=== PATIENT | female | born 1960 | race Caucasian/White ===

== ENCOUNTER → 2016-12-20 | Outpatient (CLI) | payer MEDICAID ==
[2016-12-20 08:19] LABS: Basophils # (A) 0.1 k/uL (0-0.2); Basophils % (A) 1 %; CH 30.5; CHCM 34.7; Eosinophils # (A) 0.1 k/uL (0-0.7); Eosinophils % (A) 2 %; HCT 42.1 % (34.0-46.0); HDW 2.71; Luc # (Auto) 0.13; Luc % (Auto) 3; Lymphocytes # (A) 2.1 k/uL (1.0-4.8); Lymphocytes % (A) 40 %; MCH 29.5 pg (25.0-35.0); MCHC 33.4 g/dL (31.0-37.0); MCV 88.3 fL (80.0-100.0); Mean Platelet Volume 6.6; Monocytes # (A) 0.3 k/uL (0-1.0); Monocytes % (A) 5 %; Neutrophils # (A) 2.7 k/uL (1.3-7.7); Neutrophils % (A) 50 %; RBC 4.77 m/uL (3.80-5.40); RDW 12.2 % (11.5-15.5); WBC 5.4 k/uL (3.8-10.6)
[2016-12-20 08:39] LABS: ALT 29 U/L (9-52); AST 27 U/L (14-36); Alkaline Phosphatase 48 U/L (38-126); Anion Gap 12 mmol/L; Blood Urea Nitrogen 17 mg/dL (7-17); Carbon Dioxide 27 mmol/L (22-30); Chloride 106 mmol/L (98-107); Cholesterol 200 mg/dL (<200); Glucose 102 mg/dL (74-99); HDL Cholesterol 68 mg/dL (40-60); Non-African American GFR(MDRD) >60 (>60 ml/min/1.73 sqM); Potassium 4.8 mmol/L (3.5-5.1); Sodium 145 mmol/L (137-145); Total Protein 7.7 g/dL (6.3-8.2); Triglycerides 127 mg/dL (<150)
[2016-12-20 10:22] LABS: Hemoglobin A1C 5.5 % (4.2-6.1)
== END ==
LOC: LABWHC1 07:24
PROVIDERS: ATTEND Internal Medicine Geriatric Medicine
DX: E78.5 Hyperlipidemia, unspecified (principal); I10 Essential (primary) hypertension; R79.9 Abnormal finding of blood chemistry, unspecified
CPT/HCPCS: 36415; 80053; 80061; 82306; 83036; 84439; 84443; 85025

== ENCOUNTER → 2018-04-07 | Outpatient (CLI) | payer MEDICAID ==
[2018-04-07 07:48] LABS: Basophils # (A) 0.1 k/uL (0-0.2); Basophils % (A) 1 %; Eosinophils # (A) 0.1 k/uL (0-0.7); Eosinophils % (A) 2 %; HCT 40.8 % (34.0-46.0); HGB 13.9 gm/dL (11.4-16.0); Lymphocytes # (A) 2.3 k/uL (1.0-4.8); Lymphocytes % (A) 41 %; MCH 29.7 pg (25.0-35.0); MCHC 34.1 g/dL (31.0-37.0); MCV 87.2 fL (80.0-100.0); Mean Platelet Volume 6.5; Monocytes # (A) 0.3 k/uL (0-1.0); Monocytes % (A) 5 %; Neutrophils # (A) 2.6 k/uL (1.3-7.7); Neutrophils % (A) 48 %; Platelet Count 318 k/uL (150-450); RBC 4.69 m/uL (3.80-5.40); RDW 12.8 % (11.5-15.5); WBC 5.5 k/uL (3.8-10.6)
[2018-04-07 08:01] LABS: ALT 31 U/L (9-52); AST 28 U/L (14-36); Albumin 4.4 g/dL (3.5-5.0); Alkaline Phosphatase 44 U/L (38-126); Anion Gap 11 mmol/L; Blood Urea Nitrogen 17 mg/dL (7-17); Calcium 9.9 mg/dL (8.4-10.2); Carbon Dioxide 25 mmol/L (22-30); Chloride 107 mmol/L (98-107); Cholesterol 172 mg/dL (<200); Glucose 103 mg/dL (74-99); HDL Cholesterol 69 mg/dL (40-60); LDL Cholesterol,Calculated 79 mg/dL (0-99); Potassium 4.3 mmol/L (3.5-5.1); Sodium 143 mmol/L (137-145); Total Bilirubin 0.7 mg/dL (0.2-1.3); Total Protein 7.1 g/dL (6.3-8.2); Triglycerides 120 mg/dL (<150)
[2018-04-07 08:12] LABS: T4, Free (Free Thyroxine) 1.14 ng/dL (0.78-2.19)
[2018-04-07 13:49] LABS: Hemoglobin A1C 5.5 % (4.0-6.0)
== END | disposition home or self-care (01) ==
LOC: LABWHC1 07:31
PROVIDERS: ATTEND Internal Medicine Geriatric Medicine
DX: Z00.00 Encounter for general adult medical examination without abnormal findings (principal); E78.5 Hyperlipidemia, unspecified; F32.89 Other specified depressive episodes; I10 Essential (primary) hypertension; R79.9 Abnormal finding of blood chemistry, unspecified
CPT/HCPCS: 36415; 80053; 80061; 83036; 84439; 84443; 85025

== ENCOUNTER → 2018-05-11 | Outpatient (CLI) | payer MEDICAID ==
--- NOTE | 2018-05-11 11:18 | BD ---
EXAMINATION TYPE: Axial Bone Density DATE OF EXAM: 05/11/2018 COMPARISON: 01.30.2013 CLINICAL HISTORY: 57 YR OLD FEMALE....ICD-10 CODE: Z13.820 ENCOUNTER FOR SCREENING Height: 61.8 Weight: 156 FRAX RISK QUESTIONS: NONE TO NOTE FROM LIST RISK FACTORS HISTORY OF: Surgery to Spine FOR DISC ONLY When: YR 1999 Diet low in dairy products/other sources of calcium: NO Postmenopausal woman: YES AT AGE 45 YRS OLD MEDICATIONS: Additional Medications: CELEXA, TUMS, STATINS FOR CHOLESTEROL, VIT D Additional History: NONE TO NOTE EXAM MEASUREMENTS: Bone mineral densitometry was performed using the Touch[employer] System. Bone mineral density as measured about the Lumbar spine is: ----- L1-L4(G/cm2): 1.113 T Score Values are as follows: ----- L1: -0.1 ----- L2: -0.9 ----- L3: -0.5 ----- L4: -0.7 ----- L1-L4: -0.6 Bone mineral density has: Decreased -3.5% since study of: 01.30.2013 Bone mineral density about the R hip (g/cm2): 0.939 Bone mineral density about the L hip (g/cm2): 0.929 T Score values are as follows: -----R Neck: -1.2 -----L Neck: -1.3 -----R Total: -0.5 -----L Total: -0.6 Bone mineral density has: Decreased -7.9% since study of: 01.30.2013 FRAX%s: THERE IS A 4.5% CHANCE OF A MAJOR OSTEOPOROTIC FX AND A 0.6% FOR HIP FX....PROBABILITY OF FX IN 10 YRS TIME IMPRESSION: Osteopenia (T Score between -2.5 and -1). There is slightly increased risk of fracture and the patient may be considered for treatment. Re-Screen 2-5 years. NOTE: T-SCORE=SD OF THE YOUNG ADULT MEAN.
--- NOTE | 2018-05-12 10:59 | MM ---
Reason for exam: screening (asymptomatic). Last mammogram was performed 1 year and 7 months ago. History: Patient is postmenopausal. Physical Findings: A clinical breast exam by your physician is recommended on an annual basis and results should be correlated with mammographic findings. MG Screening Mammo w CAD Bilateral CC and MLO view(s) were taken. Prior study comparison: October 19, 2016, bilateral MG screening mammo w CAD. October 16, 2015, bilateral MG screening mammo w CAD. The breast tissue is heterogeneously dense. This may lower the sensitivity of mammography. Benign appearing bilateral calcifications. No suspicious abnormality. No significant changes when compared with prior studies. ASSESSMENT: Benign, BI-RAD 2 RECOMMENDATION: Routine screening mammogram of both breasts in 1 year.
== END | disposition home or self-care (01) ==
LOC: RADMAMWWP 07:38
PROVIDERS: ATTEND Obstetrics & Gynecology
DX: Z12.31 Encounter for screening mammogram for malignant neoplasm of breast (principal); M85.80 Other specified disorders of bone density and structure, unspecified site
CPT/HCPCS: 77067; 77080

== ENCOUNTER → 2018-12-07 | Outpatient (CLI) | payer MEDICAID ==
--- NOTE | 2018-12-08 07:10 | XR ---
EXAMINATION TYPE: XR chest 2V DATE OF EXAM: 12/07/2018 COMPARISON: 02/16/2016 HISTORY: Cough for one month TECHNIQUE: Frontal and lateral views of the chest are obtained. FINDINGS: There is no focal air space opacity, pleural effusion, or pneumothorax seen. The cardiac silhouette size is within normal limits. The osseous structures are intact. Minimal degenerative ch anges of the thoracic spine are seen. IMPRESSION: No acute cardiopulmonary process.
== END | disposition home or self-care (01) ==
LOC: RADXRMAIN 16:43
PROVIDERS: ATTEND Internal Medicine Geriatric Medicine
DX: J15.6 Pneumonia due to other Gram-negative bacteria (principal)
CPT/HCPCS: 71046

== ENCOUNTER → 2020-01-08 | Outpatient (CLI) | payer MEDICAID ==
[2020-01-08 08:46] LABS: Basophils % (A) 1 %; Eosinophils # (A) 0.1 k/uL (0-0.7); Eosinophils % (A) 2 %; HCT 40.6 % (34.0-46.0); HGB 13.8 gm/dL (11.4-16.0); Lymphocytes # (A) 1.7 k/uL (1.0-4.8); Lymphocytes % (A) 32 %; MCHC 33.9 g/dL (31.0-37.0); MCV 85.6 fL (80.0-100.0); Mean Platelet Volume 7.3; Monocytes # (A) 0.3 k/uL (0-1.0); Monocytes % (A) 6 %; Neutrophils # (A) 3.1 k/uL (1.3-7.7); Neutrophils % (A) 57 %; Platelet Count 317 k/uL (150-450); RBC 4.75 m/uL (3.80-5.40); RDW 12.1 % (11.5-15.5); WBC 5.4 k/uL (3.8-10.6)
[2020-01-08 15:59] LABS: Albumin 4.8 g/dL (3.80-4.90); Albumin/Globulin Ratio 2.18 (1.60-3.17); Anion Gap 10.4 mmol/L (4.00-12.00); BUN/Creat Ratio 25.56 Ratio (12.00-20.00); Calcium 9.7 mg/dL (8.7-10.3); Carbon Dioxide 26.6 mmol/L (21.6-31.8); Chol/HDL Ratio 3.23; Globulin 2.2 g/dL (1.6-3.3); LDL Cholesterol,Calculated 110.8 mg/dL (0.0-131.0); Potassium 4.3 mmol/L (3.5-5.5); Total Bilirubin 0.5 mg/dL (0.3-1.2); VLDL Calculation 23.2 mg/dL (5.00-40.00)
[2020-01-08 18:26] LABS: Hemoglobin A1C 5.8 % (4.0-6.0)
== END | disposition home or self-care (01) ==
LOC: LABWHC1 08:03
PROVIDERS: ATTEND Nurse Practitioner Family
DX: I10 Essential (primary) hypertension (principal); R07.9 Chest pain, unspecified; E78.5 Hyperlipidemia, unspecified
CPT/HCPCS: 36415; 80053; 80061; 83036; 84443; 85025

== ENCOUNTER → 2020-06-27 | Outpatient (CLI) | payer MEDICAID ==
--- NOTE | 2020-07-01 13:49 | MM ---
Reason for exam: screening (asymptomatic). Last mammogram was performed 2 years and 2 months ago. History: Patient is postmenopausal. Physical Findings: A clinical breast exam by your physician is recommended on an annual basis and results should be correlated with mammographic findings. MG 3D Screening Mammo W/Cad Bilateral CC and MLO view(s) were taken. Prior study comparison: May 11, 2018, bilateral MG screening mammo w CAD. October 19, 2016, bilateral MG screening mammo w CAD. There are scattered fibroglandular densities. No significant changes when compared with prior studies. ASSESSMENT: Benign, BI-RAD 2 RECOMMENDATION: Routine screening mammogram of both breasts in 1 year.
== END | disposition home or self-care (01) ==
LOC: RADMAMWWP 09:54
PROVIDERS: ATTEND Internal Medicine Geriatric Medicine
DX: Z12.31 Encounter for screening mammogram for malignant neoplasm of breast (principal)
CPT/HCPCS: 77063; 77067

== ENCOUNTER 2020-07-30 08:26 | Day surgery (SDC) | payer MEDICAID ==
[2020-07-29 08:25] VITALS: BMI 28.9
[~2020-07-30 08:26] MED LIST: LIDOCAINE 1% (10MG/ML) FOR IV START INTRADERMA PRN
[2020-07-30 08:50] VITALS: TEMP 97.9
[2020-07-30] MEDS: LACTATED RINGERS 1,000 ML IV SCH ×2 (09:00→09:29)
[2020-07-30] MEDS ORDERED: PROPOFOL 10 MG/ML 20 ML VIAL IV ONE (09:31)
[2020-07-30] MEDS ORDERED: LIDOCAINE 1% INJ 10MG/ML (20 ML MDV) ONE (09:31)
--- NOTE | 2020-07-30 09:52 | P.PCN ---
Date of Procedure: 07/30/20 Procedure(s) Performed: BRIEF HISTORY: Patient is a 59-year-old pleasant female scheduled for an elective colonoscopy as a part of screening for colorectal neoplasia. Her last colonoscopy was 10 years ago. PROCEDURE PERFORMED: Colonoscopy. PREOPERATIVE DIAGNOSIS: Screening for colon cancer. IV sedation per Anesthesia. PROCEDURE: After informed consent was obtained, the patient, was brought into the endoscopy unit. IV sedation was administered by Anesthesia under continuous monitoring. Digital rectal examination was normal. Initially the Olympus CF-160 flexible video colonoscope was then inserted in the rectum, gradually advanced into the cecum without any difficulty. Careful examination was performed as the scope was gradually being withdrawn. Ileocecal valve and the appendiceal orifice were visualized and appeared normal. Prep was excellent. Mucosa of the cecum, ascending colon, transverse colon, descending colon, sigmoid colon, and rectum appeared normal. Scattered sigmoid diverticulosis seen. Retroflexion was performed in the rectum and no lesions were seen. The patient tolerated the procedure well. IMPRESSION: Normal-appearing colon from rectum to cecum with no evidence of colorectal neoplasia . Scattered sigmoid diverticulosis. RECOMMENDATIONS: Findings of this examination were discussed with the patient as well as a family. She was advised to have a repeat screening colonoscopy in 10 years.
[2020-07-30 10:11] VITALS: BP 124/74; PULSE 82; RESP 16
== END 2020-07-30 10:38 | disposition home or self-care (01) ==
LOC: ORWHC2ENDO 08:26
PROVIDERS: ATTEND Internal Medicine Gastroenterology
DX: Z12.11 Encounter for screening for malignant neoplasm of colon (principal); K57.30 Diverticulosis of large intestine without perforation or abscess without bleeding; Z79.899 Other long term (current) drug therapy; E78.5 Hyperlipidemia, unspecified; K21.9 Gastro-esophageal reflux disease without esophagitis
CPT/HCPCS: J2001; J2704; G0121

== ENCOUNTER → 2021-01-12 | Outpatient (CLI) | payer MEDICAID ==
[2021-01-12 10:36] LABS: Basophils # (A) 0.06 X 10*3/uL (0.00-0.10); Basophils % (A) 1.1 %; Eosinophils # (A) 0.09 X 10*3/uL (0.04-0.35); Eosinophils % (A) 1.7 %; HCT 37.9 % (37.2-46.3); HGB 12.8 g/dL (12.0-15.0); Lymphocytes # (A) 2.21 X 10*3/uL (0.90-5.00); MCH 29.2 pg (27.0-32.0); MCHC 33.8 g/dL (32.0-37.0); MCV 86.5 fL (80.0-97.0); Mean Platelet Volume 10.5 fL (9.5-12.2); Monocytes # (A) 0.37 X 10*3/uL (0.20-1.00); Neutrophils # (A) 2.52 X 10*3/uL (1.80-7.70); Platelet Count 294 X 10*3/uL (140-440); RBC 4.38 X 10*6/uL (4.10-5.20); RDW 11.9 % (11.5-14.5); WBC 5.26 X 10*3/uL (4.50-10.00)
[2021-01-12 11:19] LABS: African American GFR (CKD) 79.4 (60.0-200.0); Albumin 4.7 g/dL (3.80-4.90); Albumin/Globulin Ratio 2.35 (1.60-3.17); BUN/Creat Ratio 27.78 Ratio (12.00-20.00); Calcium 9.9 mg/dL (8.7-10.3); Chol/HDL Ratio 3.08; Non-African American GFR(CKD) 68.5 (60.0-200.0); Potassium 4.4 mmol/L (3.5-5.5); Total Bilirubin 0.7 mg/dL (0.2-1.2); Total Protein 6.7 g/dL (6.2-8.2)
[2021-01-12 14:09] LABS: Hemoglobin A1C 5.4 % (4.0-6.0)
== END | disposition home or self-care (01) ==
LOC: LABWHC1 07:22
PROVIDERS: ATTEND Nurse Practitioner Family
DX: I10 Essential (primary) hypertension (principal); R73.9 Hyperglycemia, unspecified; E78.2 Mixed hyperlipidemia
CPT/HCPCS: 36415; 80053; 80061; 83036; 84443; 85025

== ENCOUNTER → 2021-06-30 | Outpatient (CLI) | payer MEDICAID ==
--- NOTE | 2021-07-01 07:31 | XR ---
EXAMINATION TYPE: XR humerus LT DATE OF EXAM: 06/30/2021 CLINICAL HISTORY: pain TECHNIQUE: Frontal and lateral images of the left humerus are obtained. COMPARISON: None. FINDINGS: There is no acute fracture/dislocation evident. The joint spaces appear within normal limi ts. The overlying soft tissue appears unremarkable. IMPRESSION: There is no acute fracture or dislocation. ICD 10 NO FRACTURE, INITIAL EVALUATION
--- NOTE | 2021-07-01 07:31 | XR ---
EXAMINATION TYPE: XR lumbar spine 2 or 3V DATE OF EXAM: 06/30/2021 CLINICAL HISTORY: pain TECHNIQUE: Three views of the lumbar spine are submitted. COMPARISON: None. FINDINGS: There are 5 lumbar type vertebral bodies identified. The lumbar spine shows satisfactory alignment w ithout evidence of acute fracture or dislocation. Vertebral body heights are within normal limits. Moderate multilevel degenerative disc disease. The overlying soft tissue appears unremarkable. IMPRESSION: No acute fracture or dislocation is seen in the lumbar spine. ICD 10 NO FRACTURE, INITIAL EVALUATION
== END | disposition home or self-care (01) ==
LOC: RADXRMAIN 16:43
PROVIDERS: ATTEND Internal Medicine Geriatric Medicine
DX: M79.622 Pain in left upper arm (principal); M51.36 Other intervertebral disc degeneration, lumbar region
CPT/HCPCS: 72100

== ENCOUNTER → 2021-07-16 | Outpatient (CLI) | payer MEDICAID ==
[2021-07-16 11:06] LABS: Basophils # (A) 0.04 X 10*3/uL (0.00-0.10); Basophils % (A) 0.8 %; Eosinophils % (A) 2.1 %; HCT 39.8 % (37.2-46.3); HGB 13.7 g/dL (12.0-15.0); Lymphocytes # (A) 1.99 X 10*3/uL (0.90-5.00); Lymphocytes % (A) 41.8 %; MCH 30.2 pg (27.0-32.0); MCHC 34.4 g/dL (32.0-37.0); MCV 87.7 fL (80.0-97.0); Mean Platelet Volume 9.7 fL (9.5-12.2); Monocytes # (A) 0.54 X 10*3/uL (0.20-1.00); Monocytes % (A) 11.3 %; Neutrophils # (A) 2.07 X 10*3/uL (1.80-7.70); Neutrophils % (A) 43.6 %; Platelet Count 285 X 10*3/uL (140-440); RBC 4.54 X 10*6/uL (4.10-5.20); WBC 4.76 X 10*3/uL (4.50-10.00)
[2021-07-16 15:40] LABS: Hemoglobin A1C 5.7 % (4.0-6.0)
[2021-07-16 22:13] LABS: African American GFR (CKD) 91.6 (60.0-200.0); Albumin 4.8 g/dL (3.80-4.90); Albumin/Globulin Ratio 2.18 (1.60-3.17); Anion Gap 11.5 mmol/L (4.00-12.00); BUN/Creat Ratio 21.25 Ratio (12.00-20.00); Calcium 9.2 mg/dL (8.7-10.3); Carbon Dioxide 23.5 mmol/L (21.6-31.8); Chol/HDL Ratio 3.18; Globulin 2.2 g/dL (1.6-3.3); LDL Cholesterol,Calculated 100.8 mg/dL (0.0-131.0); Potassium 4.2 mmol/L (3.5-5.5); Total Bilirubin 0.7 mg/dL (0.3-1.2); VLDL Calculation 30.2 mg/dL (5.00-40.00)
== END | disposition home or self-care (01) ==
LOC: LABWHC1 07:46
PROVIDERS: ATTEND Internal Medicine Geriatric Medicine
DX: E78.5 Hyperlipidemia, unspecified (principal); R42 Dizziness and giddiness; R73.9 Hyperglycemia, unspecified
CPT/HCPCS: 36415; 80053; 80061; 83036; 84443; 85025

== ENCOUNTER → 2021-07-16 | Outpatient (CLI) | payer MEDICAID ==
--- NOTE | 2021-07-17 13:50 | MM ---
Reason for exam: screening (asymptomatic). Last mammogram was performed 1 year and 1 month ago. History: Patient is postmenopausal. Physical Findings: A clinical breast exam by your physician is recommended on an annual basis and results should be correlated with mammographic findings. MG 3D Screening Mammo W/Cad Bilateral CC and MLO view(s) were taken. Prior study comparison: June 27, 2020, bilateral MG 3d screening mammo w/cad. May 11, 2018, bilateral MG screening mammo w CAD. October 19, 2016, bilateral MG screening mammo w CAD. The breast tissue is heterogeneously dense. This may lower the sensitivity of mammography. There are benign appearing vascular calcifications bilaterally. There is no discrete abnormality. ASSESSMENT: Benign, BI-RAD 2 RECOMMENDATION: Routine screening mammogram of both breasts in 1 year.
== END | disposition home or self-care (01) ==
LOC: RADMAMWWP 16:34
PROVIDERS: ATTEND Internal Medicine Geriatric Medicine
DX: Z12.31 Encounter for screening mammogram for malignant neoplasm of breast (principal); Z78.0 Asymptomatic menopausal state
CPT/HCPCS: 77063; 77067

== ENCOUNTER 2022-06-23 13:50 | Emergency (ER) | payer OTHER, MEDICAID ==
[2022-06-23 14:08] VITALS: BP 170/90; PULSE 96; RESP 20; TEMP 98.1
--- NOTE | 2022-06-23 14:45 | XR ---
EXAMINATION TYPE: XR hand complete RT DATE OF EXAM: 06/23/2022 COMPARISON: NONE HISTORY: Pain TECHNIQUE: Three views are submitted. FINDINGS: Diffuse osteopenia with arthropathy involving the DIP joints of the second through fifth digits. Ther e are displaced angulated fractures involving the base of the proximal phalanx fifth digit and distal margin of the fifth metacarpal. Arthropathy of the first carpometacarpal joint noted. Pattern of art hropathy suggestive of osteoarthritis. Component of erosive osteoarthritis differential diagnosis. IMPRESSION: 1. Displaced fractures of the base proximal phalanx fifth digit and distal fifth metacarpal.
--- NOTE | 2022-06-23 14:47 | XR ---
EXAMINATION TYPE: XR wrist complete RT DATE OF EXAM: 06/23/2022 CLINICAL HISTORY: pain TECHNIQUE: Frontal, lateral and oblique images of the right wrist are obtained. COMPARISON: None. FINDINGS: There is no acute fracture/dislocation evident. The joint spaces appear within normal limits. The o verlying soft tissue appears unremarkable. IMPRESSION: There is no acute fracture or dislocation seen. ICD 10 NO FRACTURE, INITIAL EVALUATION
[2022-06-23] MEDS ORDERED: BACITRACIN OINT 1 EACH PACKET TOPICAL ONE (14:58)
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
[2022-06-23] MEDS ORDERED: DIPH,PERTUS(ACELL)TETVAC-LF 0.5 ML VIAL IM ONE (15:18)
== END 2022-06-23 15:33 | disposition home or self-care (01) ==
LOC: EC 13:50
DX: S62.326A Displaced fracture of shaft of fifth metacarpal bone, right hand, initial encounter for closed fracture (principal); S62.616A Displaced fracture of proximal phalanx of right little finger, initial encounter for closed fracture; Z23 Encounter for immunization; K21.9 Gastro-esophageal reflux disease without esophagitis; E78.5 Hyperlipidemia, unspecified; F32.A Depression, unspecified; Z87.891 Personal history of nicotine dependence; Z79.899 Other long term (current) drug therapy; V49.40XA Driver injured in collision with unspecified motor vehicles in traffic accident, initial encounter
CPT/HCPCS: 90471; 90715; 99284

== ENCOUNTER → 2022-09-14 | Outpatient (CLI) | payer MEDICAID ==
[2022-09-14 14:21] LABS: Basophils # (A) 0.08 X 10*3/uL (0.00-0.10); Basophils % (A) 1.2 %; Eosinophils # (A) 0.21 X 10*3/uL (0.04-0.35); Eosinophils % (A) 3.1 %; HCT 42.3 % (37.2-46.3); HGB 14.1 g/dL (12.0-15.0); Immature Grans, Automated 0.3 %; Lymphocytes # (A) 2.59 X 10*3/uL (0.90-5.00); Lymphocytes % (A) 37.9 %; MCH 28.6 pg (27.0-32.0); MCHC 33.3 g/dL (32.0-37.0); MCV 85.8 fL (80.0-97.0); Mean Platelet Volume 9.9 fL (9.5-12.2); Monocytes # (A) 0.45 X 10*3/uL (0.20-1.00); Monocytes % (A) 6.6 %; NRBC Per 100 WBC 0 /100 WBCS (0.0-0.0); Neutrophils # (A) 3.48 X 10*3/uL (1.80-7.70); Neutrophils % (A) 50.9 %; Platelet Count 320 X 10*3/uL (140-440); RBC 4.93 X 10*6/uL (4.10-5.20); RDW 11.9 % (11.5-14.5); WBC 6.83 X 10*3/uL (4.50-10.00)
[2022-09-14 14:55] LABS: ALT 18 U/L (8-44); AST 22 U/L (13-35); African American GFR (CKD) 90.3 (60.0-200.0); Albumin 4.7 g/dL (3.8-4.9); Albumin/Globulin Ratio 1.96 (1.60-3.17); Alkaline Phosphatase 62 U/L (41-126); Blood Urea Nitrogen 19.2 mg/dL (9.0-27.0); Calcium 9.6 mg/dL (8.7-10.3); Carbon Dioxide 23.9 mmol/L (20.0-27.5); Chloride 102 mmol/L (96-109); Chol/HDL Ratio 3.58 Ratio; Globulin 2.4 g/dL (1.6-3.3); Glucose 97 mg/dL (70-110); LDL Cholesterol,Calculated 110.3 mg/dL (0.0-131.0); Non-African American GFR(CKD) 77.9 (60.0-200.0); Potassium 4.4 mmol/L (3.5-5.5); Sodium 140 mmol/L (135-145); Total Protein 7.1 g/dL (6.2-8.2)
--- NOTE | 2022-09-14 20:20 | MM ---
Reason for Exam: Screening (asymptomatic). Last mammogram was performed 1 year(s) and 2 month(s) ago. Patient History: Menarche at age 12. First Full-Term at age 19. Postmenopausal. Risk Values: Irina 5 year model risk: 1.3%. NCI Lifetime model risk: 5.3%. Prior Study Comparison: 05/11/2018 Bilateral Screening Mammogram, [facility]. 06/27/2020 Bilateral Screening Mammogram, [facility]. 07/16/2021 Bilateral Screening Mammogram, [facility]. Tissue Density: The breast tissue is heterogeneously dense. This may lower the sensitivity of mammography. Findings: Analyzed By CAD. Benign bilateral vascular calcifications. No significant change from prior exams. Overall Assessment: Benign, BI-RAD 2 Management: Screening Mammogram of both breasts in 1 year. 1. Patient should continue monthly self breast exams. 2. A clinical breast exam by your physician is recommended on an annual basis. 3. This exam should not preclude additional follow-up of suspicious palpable abnormalities. Electronically signed and approved by: Estephanie Nino M.D. Radiologist
== END | disposition home or self-care (01) ==
LOC: RADMAMWWP 06:55
PROVIDERS: ATTEND Internal Medicine Geriatric Medicine
DX: Z12.31 Encounter for screening mammogram for malignant neoplasm of breast (principal); R73.9 Hyperglycemia, unspecified; E78.2 Mixed hyperlipidemia; R00.1 Bradycardia, unspecified; Z78.0 Asymptomatic menopausal state
CPT/HCPCS: 77063; 77067; 80053; 80061; 83036; 84443; 85025

== ENCOUNTER 2022-11-21 12:30 | Inpatient (IN) | payer MEDICAID ==
[2022-11-21] MEDS ORDERED: MORPHINE SULFATE 4 MG/ML SYRINGE IVP STA (12:51)
[2022-11-21] MEDS ORDERED: ONDANSETRON 4 MG/2 ML VIAL IVP STA (12:51)
[2022-11-21] MEDS ORDERED: KETOROLAC 15 MG/ML 1 ML VIAL IVP STA (12:51)
[2022-11-21] MEDS: SODIUM CHLORIDE 0.9% 1,000 ML IV STA ×2 (12:57→13:38)
--- NOTE | 2022-11-21 13:12 | XR ---
EXAMINATION TYPE: XR KUB DATE OF EXAM: 11/21/2022 1:08 PM INDICATION: Patient age:Female; 62 years old; Reason for study: abdominal pain; COMPARISON: CT same day TECHNIQUE: One radiographic view of the abdomen was obtained. FINDINGS: The bowel gas pattern is nonspecific without dilated loops of small or large bowel. There i s no evidence for organomegaly or pneumoperitoneum. The osseous structures are intact. No abnormal calcifications are present. Fecal material and gas are demonstrated throughout the colon and rectum. Mild degeneration changes of the spine. IMPRESSION: Nonspecific bowel gas pattern without radiographic evidence for acute process.
[2022-11-21 13:18] LABS: Basophils % (A) 0 %; Eosinophils # (A) 0.1 k/uL (0-0.7); Eosinophils % (A) 0 %; HGB 13.8 gm/dL (11.4-16.0); Lymphocytes # (A) 1.7 k/uL (1.0-4.8); Lymphocytes % (A) 12 %; MCH 29.1 pg (25.0-35.0); MCHC 35.4 g/dL (31.0-37.0); MCV 82.2 fL (80.0-100.0); Mean Platelet Volume 7.5; Monocytes # (A) 0.6 k/uL (0-1.0); Monocytes % (A) 5 %; Neutrophils # (A) 11.7 k/uL (1.3-7.7); Neutrophils % (A) 82 %; Platelet Count 315 k/uL (150-450); RBC 4.75 m/uL (3.80-5.40); RDW 12.2 % (11.5-15.5); WBC 14.3 k/uL (3.8-10.6)
[2022-11-21 13:24] LABS: Appearance,Urine Cloudy (Clear); Bilirubin,Urine Negative (Negative); Blood,Urine Trace (Negative); Budding Yeast,Urine Few /hpf; Color,Urine Yellow; Glucose,Urine (UA) Negative (Negative); Ketones,Urine Negative (Negative); Leukocyte Esterase,Urine Large (Negative); Mucus,Urine Moderate /hpf; Nitrite,Urine Negative (Negative); Protein,Urine 2+ (Negative); RBC,Urine 35 /hpf (0-5); Specific Gravity,Urine 1.031 (1.001-1.035); Squamous Epithelial Cell,Urine 16 /hpf (0-4); Urobilinogen,Urine <2.0 mg/dL (<2.0); WBC,Urine 80 /hpf (0-5)
[2022-11-21 13:25] LABS: Partial Thromboplastin Time 23.7 sec (22.0-30.0); Prothrombin Time 10.4 sec (9.0-12.0)
[2022-11-21 13:28] LABS: Albumin 4.9 g/dL (3.5-5.0); Calcium 9.9 mg/dL (8.4-10.2); Potassium 3.9 mmol/L (3.5-5.1); Total Protein 7.8 g/dL (6.3-8.2)
[2022-11-21] MEDS ORDERED: SODIUM CHLORIDE 0.9% 1,000 ML IV ONE (13:36)
--- NOTE | 2022-11-21 13:59 | CT ---
EXAMINATION TYPE: CT abdomen pelvis wo con CT DLP: 489.2 mGycm, Automated exposure control for dose reduction was used. DATE OF EXAM: 11/21/2022 1:31 PM COMPARISON: CT abdomen pelvis most recent from CLINICAL INDICATION:Female, 62 years old with history of abdominal pain. right flank pain; right side d flank pain TECHNIQUE: Axial CT of the abdomen and pelvis. Sagittal and coronal reformats were created on a [employer] workstation. Contrast used: None Oral contrast used: without Oral Contrast FINDINGS: LOWER CHEST: Unremarkable ABDOMEN LIVER: Unremarkable GALLBLADDER AND BILE DUCTS: Unremarkable. PANCREAS: Unremarkable. SPLEEN: Unremarkable. ADRENAL GLANDS: Unremarkable. KIDNEYS AND URETERS: Moderate right hydronephrosis secondary obstructing 5 mm calculus at the uretero vesicular junction. No evidence of left hydronephrosis or renal calculus. PELVIS BLADDER: Unremarkable REPRODUCTIVE: Unremarkable. ABDOMEN & PELVIS STOMACH AND BOWEL: No evidence of bowel obstruction. Appendix is normal. Scattered clonic diverticula . PERITONEUM/RETROPERITONEUM: No evidence of pneumoperitoneum or free fluid. . VASCULATURE: No evidence of aortic aneurysm. Atherosclerosis of the arterial vasculature. MUSCULOSKELETAL: No acute osseous abnormalities, mild scoliosis changes and degeneration changes thro ughout the spine. LYMPH NODES: No gross evidence for lymphadenopathy. SOFT TISSUE/ABDOMINAL WALL: Unremarkable IMPRESSION: 1. Moderate right hydroureteronephrosis secondary obstructing 5 mm calculus at the ureteral fascicul ar junction. 2. Colonic diverticulosis.
[2022-11-21] MEDS ORDERED: SODIUM CHLORIDE 0.9% 1,000 ML IV STA (14:29)
[2022-11-21] MEDS ORDERED: MORPHINE SULFATE 2 MG/ML SYRINGE IVP STA (14:32)
[2022-11-21] MEDS ORDERED: NALOXONE 0.4 MG/ML 1 ML VIAL IV PRN (14:44)
[2022-11-21] MEDS ORDERED: MORPHINE SULFATE 4 MG/ML SYRINGE IV PRN (14:44)
[2022-11-21] MEDS ORDERED: KETOROLAC 15 MG/ML 1 ML VIAL IVP PRN (14:44)
--- NOTE | 2022-11-21 15:57 | ED ---
General Adult HPI - General Chief complaint: Abdominal Pain Stated complaint: vomiting, back & stomach pain Time Seen by Provider: 11/21/22 12:36 Source: patient, RN notes reviewed, old records reviewed Mode of arrival: ambulatory Limitations: no limitations - History of Present Illness Initial comments: Patient is a 62-year-old female with past medical history remarkable for kidney stones, hyperlipidemia who presents emergency Department plenty of right flank pain. Has been ongoing for 3 days. Endorses nausea and vomiting. Prescription emesis is nonbilious and nonbloody. Denies diarrhea. Denies fevers. Endorses some darker urine. Denies any lower abdominal pain. States the pain wraps around her right flank towards her groin. Feels like a kidney stone. Presents for further evaluation of this time. Last kidney stone was back in 2011. Denies chest pain, shortness breath, fevers, chills. No other acute complaints. - Related Data Home Medications Medication Instructions Recorded Confirmed Citalopram Hydrobromide 20 mg PO HS 07/29/20 11/21/22 [Citalopram HBr] Fenofibrate 160 mg PO HS 07/29/20 11/21/22 Omeprazole 20 mg PO HS 07/29/20 11/21/22 Simvastatin 40 mg PO HS 07/29/20 11/21/22 Acetaminophen-Codeine 300-30mg 1 tab PO Q6H PRN 11/21/22 11/21/22 [Tylenol w/codeine #3] Allergies Allergy/AdvReac Type Severity Reaction Status Date / Time No Known Allergies Allergy Verified 11/21/22 14:26 Review of Systems ROS Statement: Those systems with pertinent positive or pertinent negative responses have been documented in the HPI. Review of Systems: CONST: Denies fever EYES: Denies blurry vision ENT: Denies nasal congestion C/V: Denies Chest pain RESP: Denies shortness of breath GI: Endorses abdominal pain : Denies dysuria SKIN: Denies rash. MSK: Denies joint pain. NEURO: Denies headache ROS Other: All systems not noted in ROS Statement are negative. Past Medical History Past Medical History: GERD/Reflux, Hyperlipidemia Additional Past Medical History / Comment(s): kidney stones History of Any Multi-Drug Resistant Organisms: None Reported Past Surgical History: Back Surgery Additional Past Surgical History / Comment(s): COLONOSCOPY Past Anesthesia/Blood Transfusion Reactions: No Reported Reaction Past Psychological History: Depression Smoking Status: Former smoker Past Alcohol Use History: None Reported Past Drug Use History: None Reported - Past Family History Mother Family Medical History: No Reported History General Exam - General Exam Comments Initial Comments: General: Appears in moderate distress secondary to abdominal pain. HEAD: Normal with no signs of head trauma. EYES: PERRLA, EOMI, conjunctiva normal, no discharge. ENT: Hearing grossly intact, normal oropharynx. RESPIRATORY: Clear breath sounds bilaterally. No wheezes, rales, or rhonchi. C/V: Regular rate and rhythm. S1 and S2 auscultated, no edema, peripheral pulses 2+ and intact throughout ABD: Abdomen is soft, nondistended. Patient has tenderness to palpation over the right flank. Right CVA tenderness to percussion. No guarding. No rebound tenderness. No peritoneal signs. EXT: Normal range of motion, no obvious deformity SKIN: No rashes or lesions observed on exposed skin. NEURO: Alert and oriented 4. Limitations: no limitations Course Vital Signs 11/21/22 11/21/22 11/21/22 12:33 12:48 13:40 Temperature 97.3 F L Pulse Rate 104 H 95 82 Respiratory 18 20 16 Rate Blood Pressure 146/71 164/94 153/70 O2 Sat by Pulse 97 97 97 Oximetry 11/21/22 15:07 Temperature Pulse Rate 84 Respiratory 16 Rate Blood Pressure 146/74 O2 Sat by Pulse 95 Oximetry Medical Decision Making - Medical Decision Making Based on the patient's presentation and physical exam, I'm concerned for a kidney stone for the patient. We will obtain abdominal laboratory studies, CT abdomen and pelvis without contrast, as well as symptomatically treat the patient with IV analgesia with morphine and Toradol, IV Zofran, and IV fluids. She was in agreement this plan. Vital signs within acceptable limits. Patient's laboratory studies are remarkable for mild leukocytosis of 14. Lactic acid is 3.3 and likely elevated secondary to many episodes of nausea and vomiting. Urinalysis is contaminated, and unreliable. There is blood present. KUB shows no acute intra-abdominal process. CT abdomen and pelvis without contrast reveals a right-sided UVJ 5 mm left stone with moderate hydronephrosis. I updated the patient. She is still in pain. We'll be readministered morphine at this time. I discussed with her the results. Due to her pain for multiple days as well as dehydration did recommend admission for further evaluation by urology. She was in agreement with this plan. I did speak with urology on- call, Dr. Briceño who was in agreement with the admission. He requested be placed on consult. One of the patient be nothing by mouth after midnight. Was in agreement with IV Rocephin daily empirically. Requested analgesia and IV hydration. I spoke with the admitting physician, Dr. pickard who accepted the admission. Was pt. sent in by a medical professional or institution (, PA, SET UP [employer] HEADING [employer]ACH[employer]ES, urgent care, hospital, or custodial...) When possible be specific @ -No Did you speak to anyone other than the patient for history (EMS, parent, family, police, friend...)? What history was obtained from this source @ -No Did you review nursing and triage notes (agree or disagree)? Why? @ -I reviewed and agree with nursing and triage notes Were old charts reviewed (outside hosp., previous admission, EMS record, old EKG, old radiological studies, urgent care reports/EKG's, custodial records)? Report findings @ -No old charts were reviewed Differential Diagnosis (chest pain, altered mental status, abdominal pain women, abdominal pain men, vaginal bleeding, weakness, fever, dyspnea, syncope, headache, dizziness, GI bleed, back pain, seizure, CVA, palpatations, mental health)? @ -Differential Abdominal Pain Women: Appendicitis, Cholecystitis, diverticulosis, ischemic bowel, pancreatitis, hepatitis, UTI, gastroenteritis, AAA, incarcerated hernia, bowel obstruction, constipation, inflammatory bowel, hepatitis, peptic ulcer disease, splenic infarction, perforated viscus, vulvitis, ovarian torsion, PID, kidney stone, placenta abruption, this is not meant to be an all-inclusive list EKG interpreted by me (3pts min.). @ -None done X-rays interpreted by me (1pt min.). @ -KUB shows no obvious pathology. CT interpreted by me (1pt min.). @ -CT abdomen and pelvis reveals a right-sided 5 mm moderately obstructing stone with hydronephrosis on the right. Stone is located at the UVJ. U/S interpreted by me (1pt. min.). @ -None done What testing was considered but not performed or refused? (CT, X-rays, U/S, labs)? Why? @ -None What meds were considered but not given or refused? Why? @ -None Did you discuss the management of the patient with other professionals (professionals i.e. , PA, [employer], lab, RT, psych nurse, social media project manager, machine setter sheet metal, teacher, liaison officer, employment case manager)? Give summary @ -Yes, I discussed the case with Dr. briceño who accepted the consult and was in agreement with admission. I also discussed the case with the admitting physician Dr. pickard who accepted the patient. Was smoking cessation discussed for >3mins.? @ -No Was critical care preformed (if so, how long)? @ -No Were there social determinants of health that impacted care today? How? (Homelessness, low income, unemployed, alcoholism, drug addiction, transportation, low edu. Level, literacy, decrease access to med. care, [place] [facility], rehab)? @ -No Was there de-escalation of care discussed even if they declined (Discuss DNR or withdrawal of care, Hospice)? DNR status @ -No What co-morbidities impacted this encounter? (DM, HTN, Smoking, COPD, CAD, Cancer, CVA, ARF, Chemo, Hep., AIDS, mental health diagnosis, sleep apnea, morbid obesity)? @ -None Was patient admitted / discharged? Hospital course, mention meds given and route, prescriptions, significant lab abnormalities, going to OR and other pertinent info. @ -Admitted to the hospital. See above for ED course. Undiagnosed new problem with uncertain prognosis? @ -No Drug Therapy requiring intensive monitoring for toxicity (Heparin, Nitro, Insulin, Cardizem)? @ -No Were any procedures done? @ -No Diagnosis/symptom? @ -Right sided ureteral lithiasis Acute, or Chronic, or Acute on Chronic? @ -Acute Uncomplicated (without systemic symptoms) or Complicated (systemic symptoms)? @ -Complicated Side effects of treatment? @ -No Exacerbation, Progression, or Severe Exacerbation? @ -No Poses a threat to life or bodily function? How? (Chest pain, [place], NE, pneumonia, PE, COPD, DKA, ARF, appy, cholecystitis, CVA, Diverticulitis, Homicidal, Suicidal, threat to staff... and all critical care pts) @ -Yes, if untreated can result in significant morbidity and mortality. Diagnosis/symptom? @ -Hydronephrosis right Acute, or Chronic, or Acute on Chronic? @ -Acute Uncomplicated (without systemic symptoms) or Complicated (systemic symptoms)? @ -Uncomplicated Side effects of treatment? @ -none Exacerbation, Progression, or Severe Exacerbation] @ -no Poses a threat to life or bodily function? @ -no Diagnosis/symptom? @ -Intractable abdominal pain Acute, or Chronic, or Acute on Chronic? @ -Acute Uncomplicated (without systemic symptoms) or Complicated (systemic symptoms)? @ -Uncomplicated Side effects of treatment? @ -none Exacerbation, Progression, or Severe Exacerbation] @ -no Poses a threat to life or bodily function? @ -no Diagnosis/symptom? @ -Dehydration Acute, or Chronic, or Acute on Chronic? @ -Acute Uncomplicated (without systemic symptoms) or Complicated (systemic symptoms)? @ -Complicated Side effects of treatment? @ -none Exacerbation, Progression, or Severe Exacerbation] @ -no Poses a threat to life or bodily function? @ -Yes, if untreated can result in significant morbidity and mortality. Diagnosis/symptom? @ -Nausea and vomiting Acute, or Chronic, or Acute on Chronic? @ -Acute Uncomplicated (without systemic symptoms) or Complicated (systemic symptoms)? @ -Complicated Side effects of treatment? @ -none Exacerbation, Progression, or Severe Exacerbation] @ -no Poses a threat to life or bodily function? @ -Yes, if untreated can result in significant morbidity and mortality. - Lab Data Result diagrams: 11/21/22 13:06 11/21/22 13:06 Lab Results 11/21/22 11/21/22 11/21/22 Range/Units 13:06 13:06 13:06 WBC 14.3 H (3.8-10.6) k/uL RBC 4.75 (3.80-5.40) m/uL Hgb 13.8 (11.4-16.0) gm/dL Hct 39.0 (34.0-46.0) % MCV 82.2 (80.0-100.0) fL MCH 29.1 (25.0-35.0) pg MCHC 35.4 (31.0-37.0) g/dL RDW 12.2 (11.5-15.5) % Plt Count 315 (150-450) k/uL MPV 7.5 Neutrophils % 82 % Lymphocytes % 12 % Monocytes % 5 % Eosinophils % 0 % Basophils % 0 % Neutrophils # 11.7 H (1.3-7.7) k/uL Lymphocytes # 1.7 (1.0-4.8) k/uL Monocytes # 0.6 (0-1.0) k/uL Eosinophils # 0.1 (0-0.7) k/uL Basophils # 0.0 (0-0.2) k/uL PT 10.4 (9.0-12.0) sec INR 1.0 (<1.2) APTT 23.7 (22.0-30.0) sec Sodium (137-145) mmol/L Potassium (3.5-5.1) mmol/L Chloride (98-107) mmol/L Carbon Dioxide (22-30) mmol/L Anion Gap mmol/L BUN (7-17) mg/dL Creatinine (0.52-1.04) mg/dL Est GFR (CKD-EPI)AfAm (>60 ml/min/1.73 sqM) Est GFR (CKD-EPI)NonAf (>60 ml/min/1.73 sqM) Glucose (74-99) mg/dL Lactic Ac Sepsis Rflx Plasma Lactic Acid Malcolm (0.7-2.0) mmol/L Calcium (8.4-10.2) mg/dL Total Bilirubin (0.2-1.3) mg/dL AST (14-36) U/L ALT (4-34) U/L Alkaline Phosphatase (38-126) U/L Total Protein (6.3-8.2) g/dL Albumin (3.5-5.0) g/dL Amylase (30-110) U/L Lipase (23-300) U/L Urine Color Yellow Urine Appearance Cloudy H (Clear) Urine pH 8.0 (5.0-8.0) Ur Specific [place] 1.031 (1.001-1.035) Urine Protein 2+ H (Negative) Urine Glucose (UA) Negative (Negative) Urine Ketones Negative (Negative) Urine Blood Trace H (Negative) Urine Nitrite Negative (Negative) Urine Bilirubin Negative (Negative) Urine Urobilinogen <2.0 (<2.0) mg/dL Ur Leukocyte Esterase Large H (Negative) Urine RBC 35 H (0-5) /hpf Urine WBC 80 H (0-5) /hpf Ur Squamous Epith Cells 16 H (0-4) /hpf Urine Mucus Moderate H (None) /hpf Urine Yeast (Budding) Few H (None) /hpf 11/21/22 11/21/22 11/21/22 Range/Units 13:06 13:06 13:31 WBC (3.8-10.6) k/uL RBC (3.80-5.40) m/uL Hgb (11.4-16.0) gm/dL Hct (34.0-46.0) % MCV (80.0-100.0) fL MCH (25.0-35.0) pg MCHC (31.0-37.0) g/dL RDW (11.5-15.5) % Plt Count (150-450) k/uL MPV Neutrophils % % Lymphocytes % % Monocytes % % Eosinophils % % Basophils % % Neutrophils # (1.3-7.7) k/uL Lymphocytes # (1.0-4.8) k/uL Monocytes # (0-1.0) k/uL Eosinophils # (0-0.7) k/uL Basophils # (0-0.2) k/uL PT (9.0-12.0) sec INR (<1.2) APTT (22.0-30.0) sec Sodium 138 (137-145) mmol/L Potassium 3.9 (3.5-5.1) mmol/L Chloride 102 (98-107) mmol/L Carbon Dioxide 21 L (22-30) mmol/L Anion Gap 15 mmol/L BUN 15 (7-17) mg/dL Creatinine 0.86 (0.52-1.04) mg/dL Est GFR (CKD-EPI)AfAm 83 (>60 ml/min/1.73 sqM) Est GFR (CKD-EPI)NonAf 72 (>60 ml/min/1.73 sqM) Glucose 128 H (74-99) mg/dL Lactic Ac Sepsis Rflx Y Plasma Lactic Acid Malcolm 3.3 H* (0.7-2.0) mmol/L Calcium 9.9 (8.4-10.2) mg/dL Total Bilirubin 1.0 (0.2-1.3) mg/dL AST 30 (14-36) U/L ALT 26 (4-34) U/L Alkaline Phosphatase 60 (38-126) U/L Total Protein 7.8 (6.3-8.2) g/dL Albumin 4.9 (3.5-5.0) g/dL Amylase 57 (30-110) U/L Lipase 35 (23-300) U/L Urine Color Urine Appearance (Clear) Urine pH (5.0-8.0) Ur Specific [place] (1.001-1.035) Urine Protein (Negative) Urine Glucose (UA) (Negative) Urine Ketones (Negative) Urine Blood (Negative) Urine Nitrite (Negative) Urine Bilirubin (Negative) Urine Urobilinogen (<2.0) mg/dL Ur Leukocyte Esterase (Negative) Urine RBC (0-5) /hpf Urine WBC (0-5) /hpf Ur Squamous Epith Cells (0-4) /hpf Urine Mucus (None) /hpf Urine Yeast (Budding) (None) /hpf Disposition Clinical Impression: Dehydration, Ureterolithiasis, Hydronephrosis, Nausea & vomiting, Intractable abdominal pain Disposition: ADMITTED IP TO THIS [facility] Condition: Stable Time of Disposition: 14:35
[2022-11-21] MEDS: HEPARIN SODIUM,PORCINE/PF 5,000 UNIT/0.5 ML SYRINGE SQ SCH ×2 (16:09→20:45)
[2022-11-21] MEDS ORDERED: Acetaminophen-Codeine 300-30mg TAB PO PRN (16:17)
[2022-11-21] MEDS: HYDROcodone/APAP 5-325MG 1 EACH TAB PO PRN (16:22)
[2022-11-21] MEDS: HYDROmorphone 0.5 MG/0.5 ML SYRINGE IVP PRN (17:43)
[2022-11-21] MEDS: ACETAMINOPHEN TAB 500 MG TAB PO PRN (17:49)
[2022-11-21] MEDS: SODIUM CHLORIDE 0.9% 1,000 ML IV SCH ×2 (18:05→20:45)
[2022-11-21] MEDS: PANTOPRAZOLE 40 MG TABLET PO SCH (20:45)
[2022-11-21] MEDS: ATORVASTATIN 20 MG TAB PO SCH (20:45)
[2022-11-21] MEDS: FENOFIBRATE 160 MG TAB PO SCH (20:45)
[2022-11-21] MEDS: CITALOPRAM HYDROBROMIDE 20 MG TAB PO SCH (20:45)
--- NOTE | 2022-11-22 00:36 | HP ---
HISTORY AND PHYSICAL CHIEF COMPLAINT: Abdominal pain and right loin pain. HISTORY OF PRESENT ILLNESS: This is a 62-year-old woman with a past medical history of GERD, hyperlipidemia, and kidney stones, was complaining of right loin to groin pain and the patient has hematuria also. The patient came to [facility] and was admitted for further evaluation and treatment. There is no history of any fever, rigors, or chills at this time. A CT scan of the abdomen showed moderate right hydroureteronephrosis secondary to obstructing 5 mm calculus at the ureterovesical junction and chronic diverticulosis. There is no history of any fever, rigors, or chills at this time. PAST MEDICAL HISTORY: GERD, hyperlipidemia. Rest of the history and rest of the chart is reviewed. HOME MEDICATIONS: Dose and rest of medications reviewed. ALLERGIES: None. FAMILY HISTORY: No history of any heart disease or strokes in the family. SOCIAL HISTORY: Previous history of smoker. REVIEW OF SYSTEMS: A 14-point review is negative except as mentioned earlier. PHYSICAL EXAMINATION: VITAL SIGNS: Pulse 95, blood pressure 160/90, respirations 20. HEENT: Conjunctivae normal. NECK: No JVD. CARDIOVASCULAR: S1, S2. RESPIRATIONS: Breath sounds diminished at the bases. No rhonchi. No crackles. ABDOMEN: Soft, minimal discomfort in the right renal angle. Otherwise, nontender, obese. No mass palpable. LEGS: No edema. NERVOUS SYSTEM: No focal deficits. SKIN: No ulcer, rash, or bleeding. JOINTS: No active deforming arthropathy. LABORATORY DATA: WBC 14.1. Rest of the labs are noted. ASSESSMENT: 1. Acute ureteric colic with moderate right hydroureteronephrosis. 2. Rule out urinary tract infection. 3. Gastroesophageal reflux disease. 4. Hyperlipidemia. 5. Increased WBC. 6. Multiple medical issues. RECOMMENDATION AND DISCUSSION: This is a 62-year-old woman, who presented with multiple complex medical issues. We will monitor the patient closely. We will provide symptomatic treatment. Urology consultation. Pain management. I would also recommend urine culture. Empiric antibiotics has been initiated and further recommendations to follow. See orders for further details. MMODL / IJN: [id number] /
[2022-11-22] MEDS: HYDROmorphone 0.5 MG/0.5 ML SYRINGE IVP PRN ×3 (02:27→20:36)
[2022-11-22] MEDS: ACETAMINOPHEN TAB 500 MG TAB PO PRN (02:44)
[2022-11-22] MEDS ORDERED: IBUPROFEN 200 MG TAB PO PRN (04:52)
[2022-11-22] MEDS: HEPARIN SODIUM,PORCINE/PF 5,000 UNIT/0.5 ML SYRINGE SQ SCH ×2 (07:38→16:34)
[2022-11-22] MEDS: SODIUM CHLORIDE 0.9% 1,000 ML IV SCH ×3 (07:55→20:37)
[2022-11-22 10:37] LABS: Basophils # (A) 0.02 X 10*3/uL (0.00-0.10); Basophils % (A) 0.2 %; Eosinophils # (A) 0 X 10*3/uL (0.04-0.35); Eosinophils % (A) 0 %; HCT 34.5 % (37.2-46.3); HGB 11.2 g/dL (12.0-15.0); Immature Grans, Automated 0.4 %; Lymphocytes # (A) 0.74 X 10*3/uL (0.90-5.00); Lymphocytes % (A) 7.5 %; MCH 28.8 pg (27.0-32.0); MCHC 32.5 g/dL (32.0-37.0); MCV 88.7 fL (80.0-97.0); Mean Platelet Volume 10.5 fL (9.5-12.2); Monocytes # (A) 0.53 X 10*3/uL (0.20-1.00); Monocytes % (A) 5.4 %; NRBC Per 100 WBC 0 /100 WBCS (0.0-0.0); Neutrophils % (A) 86.5 %; Platelet Count 206 X 10*3/uL (140-440); RBC 3.89 X 10*6/uL (4.10-5.20); RDW 12.9 % (11.5-14.5); WBC 9.83 X 10*3/uL (4.50-10.00)
[2022-11-22 10:50] LABS: African American GFR (CKD) 61.4 (60.0-200.0); Anion Gap 9.5 mmol/L (10.00-18.00); BUN/Creat Ratio 13.55 Ratio (12.00-20.00); Blood Urea Nitrogen 14.9 mg/dL (9.0-27.0); Calcium 8.5 mg/dL (8.7-10.3); Carbon Dioxide 21.5 mmol/L (20.0-27.5); Potassium 3.6 mmol/L (3.5-5.5)
[2022-11-22] MEDS ORDERED: IV FLUID CONTINUATION 1,000 ML IV ONE (13:33)
[2022-11-22] MEDS ORDERED: ONDANSETRON 4 MG/2 ML VIAL ONE (13:45)
[2022-11-22] MEDS ORDERED: ONDANSETRON 4 MG/2 ML VIAL IVP ONE (13:51)
[2022-11-22] MEDS ORDERED: DEXAMETHASONE SOD PHOSPHATE 4 MG/ML 1 ML VIAL IVP ONE (13:52)
[2022-11-22] MEDS ORDERED: fentaNYL (PF) 50 MCG/1 ML VIAL IVP ONE (13:52)
[2022-11-22] MEDS ORDERED: LIDOCAINE 2% INJ 20 MG/ML (2 ML VIAL) ONE (14:09)
[2022-11-22] MEDS ORDERED: PROPOFOL 10 MG/ML 20 ML VIAL IV ONE (14:09)
[2022-11-22] MEDS ORDERED: KETAMINE 10 MG/ML 20 ML VIAL ONE (14:09)
[2022-11-22] MEDS ORDERED: fentaNYL (PF) 50 MCG/ML 2 ML AMP ONE (14:09)
[2022-11-22] MEDS ORDERED: MIDAZOLAM 2 MG/2 ML VIAL ONE (14:09)
--- NOTE | 2022-11-22 14:17 | P.GSCN ---
History of Present Illness Consult date: 11/22/22 Reason for Consult: right ureteral stone History of present illness: this is a 62-year-old female with history of a 5 mm right-sided distal stone. Patient is having intractable pain with nausea and vomiting secondary to her stone. Patient was also febrile on presentation. Denies any gross hematuria or dysuria. Does have history of previous stone which she she passed spontaneously. She underwent a CT on presentation showed evidence of the distal ureteral stone with hydronephrosis. Patient was tachycardic and febrile, vital signs improved this morning. Review of Systems - Constitutional Reports chills, Reports fever - Cardiovascular Denies chest pain, Denies shortness of breath - Respiratory Denies cough, Denies 7 - Gastrointestinal Reports abdominal pain, Reports nausea, Reports vomiting - Genitourinary Genitourinary: Reports flank pain, Reports kidney stones, Denies hematuria - Neurological Denies headaches, Denies syncope Past Medical History Past Medical History: GERD/Reflux, Hyperlipidemia Additional Past Medical History / Comment(s): kidney stones, dvt History of Any Multi-Drug Resistant Organisms: None Reported Past Surgical History: Back Surgery Additional Past Surgical History / Comment(s): COLONOSCOPY, bladder suspension Past Anesthesia/Blood Transfusion Reactions: No Reported Reaction Past Psychological History: Depression Smoking Status: Former smoker Past Alcohol Use History: None Reported Additional Past Alcohol Use History / Comment(s): QUIT SMOKING 30 YEARS AGO Past Drug Use History: None Reported - Past Family History Mother Family Medical History: No Reported History Medications and Allergies Home Medications Medication Instructions Recorded Confirmed Type Citalopram Hydrobromide 20 mg PO HS 07/29/20 11/21/22 History [Citalopram HBr] Fenofibrate 160 mg PO HS 07/29/20 11/21/22 History Omeprazole 20 mg PO HS 07/29/20 11/21/22 History Simvastatin 40 mg PO HS 07/29/20 11/21/22 History Acetaminophen-Codeine 300-30mg 1 tab PO Q6H PRN 11/21/22 11/21/22 History [Tylenol w/codeine #3] Allergies Allergy/AdvReac Type Severity Reaction Status Date / Time No Known Allergies Allergy Verified 11/21/22 14:26 Surgical - Exam Vital Signs Temp Pulse Resp BP Pulse Ox 97.3 F L 104 H 18 146/71 97 11/21/22 12:33 11/21/22 12:33 11/21/22 12:33 11/21/22 12:33 11/21/22 12:33 - General no distress, moderate pain - Eyes normal ocular movement, no pale - ENT normal nares, normal mucosa - Respiratory normal expansion, normal respiratory effort - Abdomen Abdomen: soft, tender (right flank), no distended - Psychiatric oriented to time, oriented to person, oriented to place Results - Labs 11/22/22 04:10 11/22/22 04:10 Abnormal Lab Results - Last 24 Hours (Table) 11/22/22 11/22/22 Range/Units 04:10 04:10 RBC 3.89 L (4.10-5.20) X 10*6/uL Hgb 11.2 L (12.0-15.0) g/dL Hct 34.5 L (37.2-46.3) % Neutrophils # 8.50 H (1.80-7.70) X 10*3/uL Lymphocytes # 0.74 L (0.90-5.00) X 10*3/uL Eosinophils # 0 L (0.04-0.35) X 10*3/uL Anion Gap 9.50 L (10.00-18.00) mmol/L Est GFR (CKD-EPI)NonAf 53.0 L (60.0-200.0) Calcium 8.5 L (8.7-10.3) mg/dL Microbiology - Last 24 Hours (Table) 11/21/22 13:06 Urine Culture - Preliminary Urine,Clean Catch Diabetes panel 11/22/22 Range/Units 04:10 Sodium 139 (135-145) mmol/L Potassium 3.6 (3.5-5.5) mmol/L Chloride 108 (96-109) mmol/L Carbon Dioxide 21.5 (20.0-27.5) mmol/L BUN 14.9 (9.0-27.0) mg/dL Creatinine 1.1 (0.6-1.5) mg/dL Glucose 90 (70-110) mg/dL Calcium 8.5 L (8.7-10.3) mg/dL Calcium panel 11/22/22 Range/Units 04:10 Calcium 8.5 L (8.7-10.3) mg/dL Pituitary panel 11/22/22 Range/Units 04:10 Sodium 139 (135-145) mmol/L Potassium 3.6 (3.5-5.5) mmol/L Chloride 108 (96-109) mmol/L Carbon Dioxide 21.5 (20.0-27.5) mmol/L BUN 14.9 (9.0-27.0) mg/dL Creatinine 1.1 (0.6-1.5) mg/dL Glucose 90 (70-110) mg/dL Calcium 8.5 L (8.7-10.3) mg/dL Adrenal panel 11/22/22 Range/Units 04:10 Sodium 139 (135-145) mmol/L Potassium 3.6 (3.5-5.5) mmol/L Chloride 108 (96-109) mmol/L Carbon Dioxide 21.5 (20.0-27.5) mmol/L BUN 14.9 (9.0-27.0) mg/dL Creatinine 1.1 (0.6-1.5) mg/dL Glucose 90 (70-110) mg/dL Calcium 8.5 L (8.7-10.3) mg/dL Assessment and Plan Assessment: 62-year-old female history of a 5 mm right-sided distal stone. Patient septic secondary to her stone. Discussed with her given the sepsis and UTI recommend proceeding stent insertion. Discussed this is not a definitive way to manage the stone and she will require ureteroscopy with holmium laser the future. Risks benefits and rationale of surgery was discussed in detail -Or for right-sided stent insertion
--- NOTE | 2022-11-22 14:58 | FL ---
Intraoperative/procedural fluoroscopic services were provided for cystogram with right ureteral stent placement. Total fluoroscopy time is 2 seconds with a total of 3 submitted images to PACS. Please se e the operative note for further details.
[2022-11-22] MEDS ORDERED: HYDROmorphone 0.5 MG/0.5 ML SYRINGE IVP ONE (15:30)
[2022-11-22] MEDS ORDERED: KETOROLAC 15 MG/ML 1 ML VIAL IVP ONE (15:50)
[2022-11-22] MEDS: HYDROcodone/APAP 5-325MG 1 EACH TAB PO PRN (17:51)
--- NOTE | 2022-11-22 20:32 | P.OP ---
Date of Procedure: 11/22/22 Preoperative Diagnosis: right ureteral stone, hydronephrosis Postoperative Diagnosis: same Procedure(s) Performed: cystoscopy right stent insertion Implants: 6-Armenian by 24 cm stent in the right ureter Anesthesia: RINA Surgeon: Rich Briceño Estimated Blood Loss (ml): 1 Pathology: none sent Condition: stable Disposition: PACU Indications for Procedure: 62-year-old female history of a 5 mm right-sided distal stone. Patient septic secondary to her stone. Discussed with her given the sepsis and UTI recommend proceeding stent insertion. Discussed this is not a definitive way to manage the stone and she will require ureteroscopy with holmium laser the future. Risks benefits and rationale of surgery was discussed in detail Description of Procedure: patient brought to the operating room, sedation was induced. She was prepped and draped in sterile fashion a placement dorsal lithotomy position. Cystoscopy fitted with a 21-Armenian sheath was inserted per urethra, cystoscopy was performed which showed no abnormality within the bladder. attention was then carried to the right ureteral orifice which was intubated with a sensor wire. Next a ureteral stent was passed over the wire, the proximal curl was visualized on fluoroscopy and the distal curl was visualized using the cystoscope. cloudy urine was drained from the collecting system. The bladder was emptied at the end of the case. Patient tolerated the procedure well was taken to recovery in stable condition
[2022-11-22] MEDS: FENOFIBRATE 160 MG TAB PO SCH (20:36)
[2022-11-22] MEDS: PANTOPRAZOLE 40 MG TABLET PO SCH (20:36)
[2022-11-22] MEDS: ATORVASTATIN 20 MG TAB PO SCH (20:36)
[2022-11-22] MEDS: CITALOPRAM HYDROBROMIDE 20 MG TAB PO SCH (20:36)
--- NOTE | 2022-11-22 22:15 | P.PN ---
Subjective Progress Note Date: 11/22/22 Patient is monitored on medical floor pending right ureter stent placement with urology today. Patient was found to have obstructing 5 mm calculus at the ureterovesical junction. White count has normalized. T-Max in the last 24 hours 102. Continues on IV ceftriaxone. Fever is improving. Continues to report colicy right flank pain and also right sided abdominal pain tender to palpate. She is receiving IV pain medication which she states is helping. Blood pressure 110/60s. Review of Systems Constitutional: Denied any fatigue denied any fever. Cardio vascular: denied any chest pain, palpitations Gastrointestinal: denied any nausea, vomiting, diarrhea Reports right sided crampy abdominal pain and right flank pain. Pulmonary: Denied any shortness of breath cough Neurologic denied any new focal deficits All inpatient medications were reviewed and appropriate changes in these medications as dictated in the interval history and assessment and plan. PHYSICAL EXAMINATION: GENERAL: The patient is alert and oriented x3, not in any acute distress. Well developed, well nourished. HEENT: Pupils are round and equally reacting to light. EOMI. No scleral icterus. No conjunctival pallor. Normocephalic, atraumatic. No pharyngeal erythema. No thyromegaly. CARDIOVASCULAR: S1 and S2 present. No murmurs, rubs, or gallops. PULMONARY: Chest is clear to auscultation, no wheezing or crackles. ABDOMEN: Soft, Right flank pain, right side abdominal pain tender to palpation. nondistended, normoactive bowel sounds. No palpable organomegaly. MUSCULOSKELETAL: No joint swelling or deformity. EXTREMITIES: No cyanosis, clubbing, or pedal edema. NEUROLOGICAL: Gross neurological examination did not reveal any focal deficits. SKIN: No rashes. Assessment and Plan Acute ureteric colic with moderate right hydroureteronephrosis pending right ureter stent placement today Leukocytosis resolved Urinary tract infection with sepsis present on admission patient had lactic acidosis and fever. Urine culture showing gram negative bacilli and continues on IV ceftriaxone pending final cultures. IV fluids will be decreased to 75 ml/hr. History of calcium oxalate kidney stone Gastroesophageal reflux disease continue on PPI History hyperlipidemia Chronic diverticulosis found on CT imaging GI prophylaxis protonix DVT prophylaxis on subcu heparin Full Code Plan Pending finalized urine culture and will transition to short course of oral antibiotics on discharge. Pending further recommendations from urology. Continue with pain management and supportive care. Possible D/C in the next 24 hours. The impression and plan of care has been dictated by Lamar Cheng, Nurse Practitioner as directed. Dr. Leeanna MD I have performed a history and physical examination and medical decision making of this patient, discussed the same with the dictator, and agree with the dictators assessment and plan as written, documented as a scribe. Based on total visit time, I have performed more than 50% of this visit. Objective - Vital Signs Vital signs: Vital Signs Temp 97.4 F L 11/22/22 07:55 Pulse 73 11/22/22 07:55 Resp 20 11/22/22 07:55 BP 104/60 11/22/22 07:55 Pulse Ox 95 11/22/22 07:55 FiO2 Intake & Output 11/21/22 11/22/22 11/22/22 18:59 06:59 18:59 Output Total 200 Balance -200 Weight 68.039 kg Output: Urine 200 Other: Voiding Method Toilet Toilet # Voids 3 - Labs CBC & Chem 7: 11/22/22 04:10 11/22/22 04:10 Labs: Abnormal Lab Results - Last 24 Hours (Table) 11/21/22 11/21/22 11/21/22 Range/Units 13:06 13:06 13:06 WBC 14.3 H (3.8-10.6) k/uL Neutrophils # 11.7 H (1.3-7.7) k/uL Carbon Dioxide 21 L (22-30) mmol/L Glucose 128 H (74-99) mg/dL Plasma Lactic Acid Malcolm (0.7-2.0) mmol/L Urine Appearance Cloudy H (Clear) Urine Protein 2+ H (Negative) Urine Blood Trace H (Negative) Ur Leukocyte Esterase Large H (Negative) Urine RBC 35 H (0-5) /hpf Urine WBC 80 H (0-5) /hpf Ur Squamous Epith Cells 16 H (0-4) /hpf Urine Mucus Moderate H (None) /hpf Urine Yeast (Budding) Few H (None) /hpf 11/21/22 Range/Units 13:06 WBC (3.8-10.6) k/uL Neutrophils # (1.3-7.7) k/uL Carbon Dioxide (22-30) mmol/L Glucose (74-99) mg/dL Plasma Lactic Acid Malcolm 3.3 H* (0.7-2.0) mmol/L Urine Appearance (Clear) Urine Protein (Negative) Urine Blood (Negative) Ur Leukocyte Esterase (Negative) Urine RBC (0-5) /hpf Urine WBC (0-5) /hpf Ur Squamous Epith Cells (0-4) /hpf Urine Mucus (None) /hpf Urine Yeast (Budding) (None) /hpf Microbiology - Last 24 Hours (Table) 11/21/22 13:06 Urine Culture - Preliminary Urine,Clean Catch Assessment and Plan Time with Patient: Less than 30
[2022-11-23] MEDS: SODIUM CHLORIDE 0.9% 1,000 ML IV SCH ×2 (00:19→12:52)
[2022-11-23] MEDS: HEPARIN SODIUM,PORCINE/PF 5,000 UNIT/0.5 ML SYRINGE SQ SCH ×4 (00:19→23:02)
[2022-11-23] MEDS: HYDROcodone/APAP 5-325MG 1 EACH TAB PO PRN (02:24)
[2022-11-23] MEDS: ACETAMINOPHEN TAB 500 MG TAB PO PRN ×2 (07:13→23:06)
[2022-11-23] MEDS ORDERED: SODIUM CHLORIDE 0.9% 500 ML 500 ML IV ONE (14:14)
--- NOTE | 2022-11-23 14:45 | P.PN ---
Subjective Progress Note Date: 11/23/22 Patient is monitored on medical floor pending right ureter stent placement with urology today. Patient was found to have obstructing 5 mm calculus at the ureterovesical junction. White count has normalized. T-Max in the last 24 hours 102. Continues on IV ceftriaxone. Fever is improving. Continues to report colicy right flank pain and also right sided abdominal pain tender to palpate. She is receiving IV pain medication which she states is helping. Blood pressure 110/60s. 11/23/2022 Patient is evaluated today postoperative day #1 cystoscopy with right stent insertion with urology. Currently states that right sided pain has improved. Urine output at 200 mls overnight and patient reports dark in color. Patient has been hydrated with normal saline at 75 mls/hr. She is also given a 500 ml fluid bolus today. Urine culture is pending currently showing gram negative bacilli and she continues on IV ceftriaxone. Urology recommending to monitor overnight. Continue with strict intake and output monitoring. Patient remains afebrile, heart rate 115, blood pressure 162/76, 92% on room air. Review of Systems Constitutional: Denied any fatigue denied any fever. Cardio vascular: denied any chest pain, palpitations Gastrointestinal: denied any nausea, vomiting, diarrhea. Reports dark urine. Pulmonary: Denied any shortness of breath cough Neurologic denied any new focal deficits All inpatient medications were reviewed and appropriate changes in these medications as dictated in the interval history and assessment and plan. PHYSICAL EXAMINATION: GENERAL: The patient is alert and oriented x3, not in any acute distress. Well developed, well nourished. HEENT: Pupils are round and equally reacting to light. EOMI. No scleral icterus. No conjunctival pallor. Normocephalic, atraumatic. No pharyngeal erythema. No thyromegaly. CARDIOVASCULAR: S1 and S2 present. No murmurs, rubs, or gallops. PULMONARY: Chest is clear to auscultation, no wheezing or crackles. ABDOMEN: Soft, abdomen is nontender. nondistended, normoactive bowel sounds. No palpable organomegaly. MUSCULOSKELETAL: No joint swelling or deformity. EXTREMITIES: No cyanosis, clubbing, or pedal edema. NEUROLOGICAL: Gross neurological examination did not reveal any focal deficits. SKIN: No rashes. Assessment and Plan Acute ureteric colic with moderate right hydroureteronephrosis postoperative day #1 cystoscopy with stent placement. Leukocytosis resolved Urinary tract infection with sepsis present on admission patient had lactic acidosis and fever. Urine culture showing gram negative bacilli and continues on IV ceftriaxone pending final cultures. History of calcium oxalate kidney stone Gastroesophageal reflux disease continue on PPI History hyperlipidemia Chronic diverticulosis found on CT imaging GI prophylaxis protonix DVT prophylaxis on subcu heparin Full Code Plan Pending finalized urine culture and will transition to short course of oral antibiotics on discharge. Continue with IV fluids and intake and output monitoring. Urology following patient closely. Continue with pain management and supportive care. Possible D/C in the next 24 hours. The impression and plan of care has been dictated by Lamar Cheng Nurse Practitioner as directed. Dr. Leeanna MD I have performed a history and physical examination and medical decision making of this patient, discussed the same with the dictator, and agree with the dictators assessment and plan as written, documented as a scribe. Based on total visit time, I have performed more than 50% of this visit. Objective - Vital Signs Vital signs: Vital Signs Temp 98.4 F 11/23/22 07:05 Pulse 115 H 11/23/22 07:05 Resp 19 11/23/22 07:05 BP 162/76 11/23/22 07:05 Pulse Ox 92 L 11/23/22 07:05 FiO2 Intake & Output 11/22/22 11/23/22 11/23/22 18:59 06:59 18:59 Intake Total 700 Output Total 101 Balance 599 Intake: IV 700 Output: Urine 100 Estimated Blood Loss 1 Other: Voiding Method Toilet Toilet # Voids 3 3 # Bowel Movements 1 - Labs CBC & Chem 7: 11/22/22 04:10 11/22/22 04:10 Labs: Microbiology - Last 24 Hours (Table) 11/21/22 13:06 Urine Culture - Preliminary Urine,Clean Catch Gram Neg Bacilli 11/21/22 14:45 Blood Culture - Preliminary Blood No Growth after 24 hours 11/21/22 15:00 Blood Culture - Preliminary Blood No Growth after 24 hours Assessment and Plan Time with Patient: Less than 30
[2022-11-23] MEDS: CITALOPRAM HYDROBROMIDE 20 MG TAB PO SCH (19:25)
[2022-11-23] MEDS: FENOFIBRATE 160 MG TAB PO SCH (19:25)
[2022-11-23] MEDS: PANTOPRAZOLE 40 MG TABLET PO SCH (19:25)
[2022-11-23] MEDS: ATORVASTATIN 20 MG TAB PO SCH (19:25)
[2022-11-24] MEDS: SODIUM CHLORIDE 0.9% 1,000 ML IV SCH ×2 (07:53→15:57)
[2022-11-24] MEDS: HEPARIN SODIUM,PORCINE/PF 5,000 UNIT/0.5 ML SYRINGE SQ SCH ×3 (08:17→20:44)
--- NOTE | 2022-11-24 10:49 | P.PN ---
Subjective Progress Note Date: 11/24/22 Principal diagnosis: Right ureteral stone Patient is a 62-year-old male with a history of a 5 mm right distal stone. The patient was having intractable pain with associated nausea and vomiting. Patient was also febrile on presentation. She underwent a CT on presentation showed ev idence of a distal ureteral stone with hydronephrosis. On 11/22/22 patient underwent a cystoscopy and a right renal stent insertion with Dr. Briceño. She tolerated the procedure well. POD #1 Urine culture was pending finalization. Growing gram negative bacilli and she continues on IV ceftriaxone. Objective - Vital Signs Vital signs: Vital Signs Temp 99.4 F 11/24/22 08:00 Pulse 100 11/24/22 08:00 Resp 16 11/24/22 08:00 BP 152/80 11/24/22 08:00 Pulse Ox 90 L 11/24/22 08:00 FiO2 Intake & Output 11/23/22 11/24/22 11/24/22 18:59 06:59 18:59 Intake Total 200 Output Total 400 Balance -200 Intake: Oral 200 Output: Urine 400 Other: Voiding Method Toilet Toilet Toilet # Voids 4 1 - Exam General: Well developed, well nourished. No acute distress. HEENT: Head is atraumatic, normocephalic. Lungs: Respirations even and nonlabored. Abdomen/GI: Soft. No guarding, rigidity, or abdominal tenderness. : No suprapubic tenderness. Skin: Warm and dry Neurologic: Alert and oriented 3, CN II-XII grossly intact. No focal deficits. Psychiatric: Appropriate mood and affect. - Labs CBC & Chem 7: 11/22/22 04:10 11/22/22 04:10 Labs: Microbiology - Last 24 Hours (Table) 11/21/22 15:00 Blood Culture - Preliminary Blood No Growth after 48 hours 11/21/22 14:45 Blood Culture - Preliminary Blood No Growth after 48 hours 11/21/22 13:06 Urine Culture - Final Urine,Clean Catch Citrobacter freundii Assessment and Plan Assessment: Today the patient has a low-grade temperature of 99.4 . She is hemodynamically stable and on room air. The patient is able to forward without difficulty. She does report some mild right flank pain. The patient will be scheduled for a secondary procedure to remove her stent and removal of stone once her infection clears. Blood cultures NGTD. Urine culture growing Citrobacter freundii. Recommend changing patient to oral antibiotics per ID. Patient is stable to be discharged from a urological standpoint. (1) Right ureteral stone Current Visit: Yes Status: Acute Code(s): N20.1 - CALCULUS OF URETER SNOMED Code(s): 20108843 (2) Hydronephrosis Current Visit: Yes Status: Acute Code(s): N13.30 - UNSPECIFIED HYDRONEPHROSIS SNOMED Code(s): 74214527 Plan: - Recommend changing patient to oral antibiotics - per ID recommendations - May be discharged home today from our standpoint - Our office will schedule a secondary surgery Impression and plan of care have been directed as dictated by the signing physician. Jenna Means nurse practitioner acting as scribe for signing physician. Jenna Means [facility] [id number] Email: [email or web address] I have personally seen and examined the patient, reviewed the documentation and agree with the assessment and plan as written. Number of minutes spent on the visit: 15. Walt Cardenas MD
[2022-11-24] MEDS: ACETAMINOPHEN TAB 500 MG TAB PO PRN ×2 (11:46→20:44)
--- NOTE | 2022-11-24 13:36 | P.PN ---
Subjective Progress Note Date: 11/24/22 Patient is monitored on medical floor pending right ureter stent placement with urology today. Patient was found to have obstructing 5 mm calculus at the ureterovesical junction. White count has normalized. T-Max in the last 24 hours 102. Continues on IV ceftriaxone. Fever is improving. Continues to report colicy right flank pain and also right sided abdominal pain tender to palpate. She is receiving IV pain medication which she states is helping. Blood pressure 110/60s. 11/23/2022 Patient is evaluated today postoperative day #1 cystoscopy with right stent insertion with urology. Currently states that right sided pain has improved. Urine output at 200 mls overnight and patient reports dark in color. Patient has been hydrated with normal saline at 75 mls/hr. She is also given a 500 ml fluid bolus today. Urine culture is pending currently showing gram negative bacilli and she continues on IV ceftriaxone. Urology recommending to monitor overnight. Continue with strict intake and output monitoring. Patient remains afebrile, heart rate 115, blood pressure 162/76, 92% on room air. 11/24/2022 Patient is postoperative day #2 cystoscopy with right stent placement. She reports increased urine output and also states urine is clearing up. Urology has cleared and will see patient in the office. She continues to be febrile and urine culture showing citrobacter. Infectious disease consulted for further antibiotic recommendations. Patient will continue on IV ceftriaxone overnight and discharge on oral antibiotics tomorrow. Blood culture remains negative. Review of Systems Constitutional: Denied any fatigue denied any fever. Cardio vascular: denied any chest pain, palpitations Gastrointestinal: denied any nausea, vomiting, diarrhea. Pulmonary: Denied any shortness of breath cough Neurologic denied any new focal deficits All inpatient medications were reviewed and appropriate changes in these medications as dictated in the interval history and assessment and plan. PHYSICAL EXAMINATION: GENERAL: The patient is alert and oriented x3, not in any acute distress. Well developed, well nourished. HEENT: Pupils are round and equally reacting to light. EOMI. No scleral icterus. No conjunctival pallor. Normocephalic, atraumatic. No pharyngeal erythema. No thyromegaly. CARDIOVASCULAR: S1 and S2 present. No murmurs, rubs, or gallops. PULMONARY: Chest is clear to auscultation, no wheezing or crackles. ABDOMEN: Soft, abdomen is nontender. nondistended, normoactive bowel sounds. No palpable organomegaly. MUSCULOSKELETAL: No joint swelling or deformity. EXTREMITIES: No cyanosis, clubbing, or pedal edema. NEUROLOGICAL: Gross neurological examination did not reveal any focal deficits. SKIN: No rashes. Assessment and Plan Acute ureteric colic with moderate right hydroureteronephrosis postoperative day #2 cystoscopy with stent placement. Leukocytosis resolved Urinary tract infection with sepsis present on admission patient had lactic acidosis and fever. Urine culture showing citrobacter and patient will be continued on IV ceftriaxone. History of calcium oxalate kidney stone Gastroesophageal reflux disease continue on PPI History hyperlipidemia Chronic diverticulosis found on CT imaging GI prophylaxis protonix DVT prophylaxis on subcu heparin Full Code Plan Continue with IV fluids and intake and output monitoring. Continue with IV ceftriaxone and infectious disease has been consulted for further antibiotic recommendations. Continue with supportive care. Urology cleared and will see patient in the office. Patient will be monitored overnight and possible D/C tomorrow. The impression and plan of care has been dictated by Lamar Cheng, Nurse Practitioner as directed. Dr. Leeanna MD I have performed a history and physical examination and medical decision making of this patient, discussed the same with the dictator, and agree with the dictators assessment and plan as written, documented as a scribe. Based on total visit time, I have performed more than 50% of this visit. Objective - Vital Signs Vital signs: Vital Signs Temp 98.6 F 11/24/22 12:48 Pulse 104 H 11/24/22 11:42 Resp 16 11/24/22 08:00 BP 152/80 11/24/22 08:00 Pulse Ox 93 L 11/24/22 11:42 FiO2 Intake & Output 11/23/22 11/24/22 11/24/22 18:59 06:59 18:59 Intake Total 200 Output Total 400 Balance -200 Intake: Oral 200 Output: Urine 400 Other: Voiding Method Toilet Toilet Toilet # Voids 4 1 - Labs CBC & Chem 7: 11/22/22 04:10 11/22/22 04:10 Labs: Microbiology - Last 24 Hours (Table) 11/21/22 15:00 Blood Culture - Preliminary Blood No Growth after 48 hours 11/21/22 14:45 Blood Culture - Preliminary Blood No Growth after 48 hours 11/21/22 13:06 Urine Culture - Final Urine,Clean Catch Citrobacter freundii Assessment and Plan Time with Patient: Less than 30
[2022-11-24] MEDS: FENOFIBRATE 160 MG TAB PO SCH (20:22)
[2022-11-24] MEDS: ATORVASTATIN 20 MG TAB PO SCH (20:22)
[2022-11-24] MEDS: PANTOPRAZOLE 40 MG TABLET PO SCH (20:22)
[2022-11-24] MEDS: CITALOPRAM HYDROBROMIDE 20 MG TAB PO SCH (20:22)
--- NOTE | 2022-11-24 21:54 | P.CONS ---
History of Present Illness - Reason for Consult Consult date: 11/24/22 Fever Requesting physician: Lamar Cheng - Chief Complaint Right flank pain x few days - History of Present Illness Patient is a 62-year-old female with a past medical history significant for kidney stone hyperlipidemia presenting to the hospital about 4 days ago on 11/21/2022 for evaluation of right flank pain patient pain has been going on for about 3 days before presentation to the hospital patient describes the pain to be more of a sharp in nature mostly in the right flank radiating to the right lower abdominal area intensity was almost 10 out of 10 by the time she presented to hospital patient was complaining of nausea and vomiting denies having any diarrhea no significant burning frequency of urine or any hematuria with the symptom the patient has been evaluated by the ER physician on arrival to the ER the patient was afebrile initially subsequently she has been running a fever of 102 F for the last few days patient did have a white count of 14.3 with a left shift lactic acid was 3.3 creatinine 0.86 liver enzymes are normal urine was positive patient did have a CT of abdominal pelvis moderate right hydroureteronephrosis secondary to obstructing 5 mm calculus at the ureteral junction patient was taken to the OR on 11/22/2022 in this patient with status post hysteroscopy with right ureteral stent placement patient urine culture subsequently finalized with Citrobacter that is sensitive to ceftriaxone however the patient still having a fever that is concerned the admitting team and infectious disease was consulted for further management of antibiotic therapy, patient currently denies having any fever or any chills no headache no chest pain shortness of breath or cough no nausea vomiting flank pain has improved and no hematuria Review of Systems Positive point has been mentioned in the HPI rest of the systems are negative Past Medical History Past Medical History: GERD/Reflux, Hyperlipidemia Additional Past Medical History / Comment(s): kidney stones, dvt History of Any Multi-Drug Resistant Organisms: None Reported Past Surgical History: Back Surgery Additional Past Surgical History / Comment(s): COLONOSCOPY, bladder suspension Past Anesthesia/Blood Transfusion Reactions: No Reported Reaction Past Psychological History: Depression Smoking Status: Former smoker Past Alcohol Use History: None Reported Additional Past Alcohol Use History / Comment(s): QUIT SMOKING 30 YEARS AGO Past Drug Use History: None Reported - Past Family History Mother Family Medical History: No Reported History Medications and Allergies Home Medications Medication Instructions Recorded Confirmed Type Citalopram Hydrobromide 20 mg PO HS 07/29/20 11/21/22 History [Citalopram HBr] Fenofibrate 160 mg PO HS 07/29/20 11/21/22 History Omeprazole 20 mg PO HS 07/29/20 11/21/22 History Simvastatin 40 mg PO HS 07/29/20 11/21/22 History Acetaminophen-Codeine 300-30mg 1 tab PO Q6H PRN 11/21/22 11/21/22 History [Tylenol w/codeine #3] Allergies Allergy/AdvReac Type Severity Reaction Status Date / Time No Known Allergies Allergy Verified 11/21/22 14:26 Physical Exam Vitals: Vital Signs Temp Pulse Resp BP Pulse Ox 11/24/22 08:00 99.4 F 100 16 152/80 90 L 11/24/22 02:15 98.3 F 98 17 149/77 93 L 11/23/22 23:08 101.3 F H 105 H 170/88 11/23/22 20:25 100.5 F H 111 H 19 181/73 96 11/23/22 14:23 99.4 F 92 17 160/80 95 Intake and Output 11/23/22 11/24/22 11/24/22 22:59 06:59 14:59 Intake Total 200 Output Total 400 Balance -200 Intake: Oral 200 Output: Urine 400 Other: Voiding Method Toilet Toilet # Voids 4 1 GENERAL DESCRIPTION: Middle-aged female lying in bed, no distress. No tachypnea or accessory muscle of respiration use. HEENT: Shows Pallor , no scleral icterus. Oral mucous membrane is dry. No pharyngeal erythema or thrush NECK: Trachea central, no thyromegaly. LUNGS: Unlabored breathing. Clear to auscultation anteriorly. No wheeze or crackle. HEART: S1, S2, regular rate and rhythm. No loud murmur ABDOMEN: Soft, no tenderness , guarding or rigidity, no organomegaly EXTREMITIES: No edema of feet. SKIN: No rash, no masses palpable. NEUROLOGICAL: The patient is awake, alert, oriented x3, mood and affect normal. Results CBC & Chem 7: 11/25/22 06:27 11/25/22 06:27 Labs: Microbiology - Last 24 Hours (Table) 11/21/22 15:00 Blood Culture - Preliminary Blood No Growth after 48 hours 11/21/22 14:45 Blood Culture - Preliminary Blood No Growth after 48 hours 11/21/22 13:06 Urine Culture - Final Urine,Clean Catch Citrobacter freundii Assessment and Plan (1) Sepsis Current Visit: Yes Status: Acute Code(s): A41.9 - SEPSIS, UNSPECIFIED ORGANISM SNOMED Code(s): 96208839 (2) Pyelonephritis Current Visit: Yes Status: Acute Code(s): N12 - TUBULO-INTERSTITIAL NEPHRITIS, NOT SPCF ACUTE OR CHRONIC SNOMED Code(s): 37072978 Plan: 1patient presented to hospital with sepsis secondary to complicated UTI in this patient who did have a right-sided hydroureteronephrosis requiring cystoscopy and ureteral stent placement with urine culture currently growing Citrobacter blood culture has been negative. Patient did have a component of sepsis on admission with fever and elevated white count and complicated UTI 2-persistent fevers likely concerning however it is common to have fever for a day or 2 with pyelonephritis despite being on the right antibiotic as the patient is currently not looking toxic is feeling better and white count is trending down and stable continue patient on Rocephin however hold her discharge to ensure the patient is afebrile for 24 hours before we will transition her to oral antibiotics this was discussed with the admitting team PLASTERER STUCCO 3-continue with Rocephin 2 g daily and gentle IV fluid We will follow on clinical condition and cultures to further adjust medication if needed Thank you for this consultation we will follow the patient along with you Time with Patient: Greater than 30
[2022-11-25 07:16] VITALS: RESP 19
[2022-11-25] MEDS: SODIUM CHLORIDE 0.9% 1,000 ML IV SCH (07:52)
[2022-11-25] MEDS: HEPARIN SODIUM,PORCINE/PF 5,000 UNIT/0.5 ML SYRINGE SQ SCH ×2 (08:10→16:29)
[2022-11-25 09:14] LABS: Basophils # (A) 0.04 X 10*3/uL (0.00-0.10); Basophils % (A) 0.6 %; Eosinophils # (A) 0.17 X 10*3/uL (0.04-0.35); Eosinophils % (A) 2.7 %; HCT 28.6 % (37.2-46.3); HGB 9.6 g/dL (12.0-15.0); Immature Grans, Automated 0.9 %; Lymphocytes # (A) 1.45 X 10*3/uL (0.90-5.00); Lymphocytes % (A) 22.6 %; MCH 28.6 pg (27.0-32.0); MCHC 33.6 g/dL (32.0-37.0); MCV 85.1 fL (80.0-97.0); Mean Platelet Volume 10.4 fL (9.5-12.2); Monocytes # (A) 0.57 X 10*3/uL (0.20-1.00); Monocytes % (A) 8.9 %; NRBC Per 100 WBC 0 /100 WBCS (0.0-0.0); Neutrophils # (A) 4.12 X 10*3/uL (1.80-7.70); Neutrophils % (A) 64.3 %; Platelet Count 239 X 10*3/uL (140-440); RBC 3.36 X 10*6/uL (4.10-5.20); RDW 12.8 % (11.5-14.5); WBC 6.41 X 10*3/uL (4.50-10.00)
[2022-11-25 09:32] LABS: African American GFR (CKD) 111.2 (60.0-200.0); BUN/Creat Ratio 13.36 Ratio (12.00-20.00); Blood Urea Nitrogen 8.1 mg/dL (9.0-27.0); C Reactive Protein 13.1 mg/dL (0.00-0.80); Calcium 8.5 mg/dL (8.7-10.3); Carbon Dioxide 25.6 mmol/L (20.0-27.5); Non-African American GFR(CKD) 95.9 (60.0-200.0); Potassium 3.4 mmol/L (3.5-5.5)
--- NOTE | 2022-11-25 12:32 | P.PN ---
Subjective Progress Note Date: 11/25/22 Principal diagnosis: Right ureteral stone Patient is a 62-year-old male with a history of a 5 mm right distal stone. The patient was having intractable pain with associated nausea and vomiting. Patient was also febrile on presentation. She underwent a CT on presentation showed ev idence of a distal ureteral stone with hydronephrosis. On 11/22/22 patient underwent a cystoscopy and a right renal stent insertion with Dr. Briceño. She tolerated the procedure well. POD #1 Urine culture was pending finalization. Growing gram negative bacilli and she continues on IV ceftriaxone. 2 Today the patient has a low-grade temperature of 99.4 . She is hemodynamically stable and on room air. The patient is able to forward without difficulty. She does report some mild right flank pain. The patient will be scheduled for a secondary procedure to remove her stent and removal of stone once her infection clears. Blood cultures NGTD. Urine culture growing Citrobacter freundii. Recommend changing patient to oral antibiotics per ID. Patient is stable to be discharged from a urological standpoint. Objective - Vital Signs Vital signs: Vital Signs Temp 98.9 F 11/25/22 07:15 Pulse 89 11/25/22 07:15 Resp 19 11/25/22 07:15 BP 153/75 11/25/22 07:15 Pulse Ox 92 L 11/25/22 07:15 FiO2 Intake & Output 11/24/22 11/25/22 11/25/22 18:59 06:59 18:59 Intake Total 400 Output Total 400 Balance 0 Intake: Oral 400 Output: Urine 400 Other: Voiding Method Toilet Toilet Toilet # Voids 1 6 - Exam General: Well developed, well nourished. No acute distress. HEENT: Head is atraumatic, normocephalic. Lungs: Respirations even and nonlabored. Abdomen/GI: Soft. No guarding, rigidity, or abdominal tenderness. : No suprapubic tenderness. Skin: Warm and dry Neurologic: Alert and oriented 3, CN II-XII grossly intact. No focal deficits. Psychiatric: Appropriate mood and affect. - Labs CBC & Chem 7: 11/25/22 06:27 11/25/22 06:27 Labs: Abnormal Lab Results - Last 24 Hours (Table) 11/25/22 11/25/22 Range/Units 06:27 06:27 RBC 3.36 L (4.10-5.20) X 10*6/uL Hgb 9.6 L (12.0-15.0) g/dL Hct 28.6 L (37.2-46.3) % Immature Gran # 0.06 H (0.00-0.04) X 10*3/uL Potassium 3.4 L (3.5-5.5) mmol/L BUN 8.1 L (9.0-27.0) mg/dL Calcium 8.5 L (8.7-10.3) mg/dL C-Reactive Protein 13.10 H (0.00-0.80) mg/dL Microbiology - Last 24 Hours (Table) 11/21/22 15:00 Blood Culture - Preliminary Blood No Growth after 72 hours 11/21/22 14:45 Blood Culture - Preliminary Blood No Growth after 72 hours Assessment and Plan Assessment: The patient states she is ready to go home. She reports voiding without difficu lty, no hematuria, no dysuria. She denies any pain. No leukocytosis, serum creatinine stable at 0.6. The patient states that, per ID, she will not be discharged home unless she is afebrile for 24 hours. She will remain on Rocephin, then be transitioned to oral antibiotics for discharge. However, the patient's temperature was 100.9F last night. She is afebrile today. She is stable to be discharged from a urological standpoint. (1) Right ureteral stone Current Visit: Yes Status: Acute Code(s): N20.1 - CALCULUS OF URETER SNOMED Code(s): 57498398 (2) Hydronephrosis Current Visit: Yes Status: Acute Code(s): N13.30 - UNSPECIFIED HYDRONEPHROSIS SNOMED Code(s): 03982752 Plan: - Transition to oral antibiotics upon discharge- per ID recommendations - May be discharged home today from our stand point - Our office will schedule a secondary surgery Impression and plan of care have been directed as dictated by the signing physician. Jenna Means nurse practitioner acting as scribe for signing physician. Jenna Means [facility] Palliative Care/Urology [facility] [id number] Email: I have personally seen and examined the patient, reviewed the documentation and agree with the assessment and plan as written. Number of minutes spent on the visit: 10. Walt Cardenas MD
[2022-11-25] MEDS ORDERED: POTASSIUM CHLORIDE ER 20 MEQ TAB.ER PO STA (12:54)
--- NOTE | 2022-11-25 13:08 | P.PN ---
Subjective Progress Note Date: 11/25/22 Principal diagnosis: Citrobacter complicated UTI Patient is a 62-year-old female last medical history significant for kidney stones presented to hospital with right flank pain diagnosed with the moderate of some right-sided hydronephrosis requiring cystoscopy and ureteral stent placement urine culture Citrobacter blood culture has been negative. On today's evaluation that is 11/25/2022, the patient did have a low-grade fever 100.9 last night however the patient is afebrile since then, the patient is feeling better breathing comfortably no chest pain or shortness of cough flank pain has resolved and no nausea no vomiting no diarrhea Objective - Vital Signs Vital signs: Vital Signs Temp 98.9 F 11/25/22 07:15 Pulse 89 11/25/22 07:15 Resp 19 11/25/22 07:15 BP 153/75 11/25/22 07:15 Pulse Ox 92 L 11/25/22 07:15 FiO2 Intake & Output 11/24/22 11/25/22 11/25/22 18:59 06:59 18:59 Intake Total 400 Output Total 400 Balance 0 Intake: Oral 400 Output: Urine 400 Other: Voiding Method Toilet Toilet Toilet # Voids 1 6 - Exam GENERAL DESCRIPTION: A middle-age female up in the chair in no distress RESPIRATORY SYSTEM: Unlabored breathing , decreased breath sounds at bases HEART: S1 S2 regular rate and rhythm , ABDOMEN: Soft , no tenderness EXTREMITIES: No edema feet - Labs CBC & Chem 7: 11/25/22 06:27 11/25/22 06:27 Labs: Abnormal Lab Results - Last 24 Hours (Table) 11/25/22 11/25/22 Range/Units 06:27 06:27 RBC 3.36 L (4.10-5.20) X 10*6/uL Hgb 9.6 L (12.0-15.0) g/dL Hct 28.6 L (37.2-46.3) % Immature Gran # 0.06 H (0.00-0.04) X 10*3/uL Potassium 3.4 L (3.5-5.5) mmol/L BUN 8.1 L (9.0-27.0) mg/dL Calcium 8.5 L (8.7-10.3) mg/dL C-Reactive Protein 13.10 H (0.00-0.80) mg/dL Microbiology - Last 24 Hours (Table) 11/21/22 15:00 Blood Culture - Preliminary Blood No Growth after 72 hours 11/21/22 14:45 Blood Culture - Preliminary Blood No Growth after 72 hours Assessment and Plan (1) Pyelonephritis Current Visit: Yes Status: Acute Code(s): N12 - TUBULO-INTERSTITIAL NEPHRITIS, NOT SPCF ACUTE OR CHRONIC SNOMED Code(s): 49826620 Plan: 1patient presented to hospital with sepsis secondary to complicated UTI in this patient who did have a right-sided hydroureteronephrosis requiring cystoscopy and ureteral stent placement with urine culture currently growing Citrobacter blood culture has been negative. 2-persistent fevers likely concerning however it is common to have fever for a day or 2 with pyelonephritis despite being on the right antibiotic as the patient is currently not looking toxic is feeling better and the patient white count is down to 6.41 and the patient is feeling better we will continue Rocephin while inpatient finishing therapy with oral Ceftin 2 weeks, cannot use Cipro as the patient is on Celexa Close outpatient follow-up Time with Patient: Less than 30
[2022-11-25 13:52] VITALS: BP 160/85; PULSE 88; TEMP 100.1
--- NOTE | 2022-11-25 15:17 | XR ---
EXAMINATION TYPE: XR chest 2V DATE OF EXAM: 11/25/2022 2:34 PM COMPARISON: Chest radiographs from 12/07/2018 TECHNIQUE: XR chest 2V Frontal and lateral views of the chest. CLINICAL INDICATION:Female, 62 years old with history of fever hypoxia; FINDINGS: Lungs/Pleura: There is no evidence of focal consolidation, or pneumothorax. Blunting of the right co stophrenic angle. Pulmonary vascularity: Unremarkable. Heart/mediastinum: Cardiomediastinal silhouette is unremarkable. Musculoskeletal: No acute osseous pathology. IMPRESSION: No focal consolidation. Trace right pleural effusion.
== END 2022-11-25 16:27 | disposition home or self-care (01) | DRG 854 ==
LOC: EC 12:30 → 4SSUR 14:44
PROVIDERS: ADMIT Internal Medicine; ATTEND Internal Medicine
PROC: 0T768DZ Dilation of Right Ureter with Intraluminal Device, Via Natural or Artificial Opening Endoscopic (ICD-10-PCS; principal; 2022-11-22 07:30)
DX: A41.59 Other Gram-negative sepsis (principal); E87.20 Acidosis, unspecified; N13.6 Pyonephrosis; K57.30 Diverticulosis of large intestine without perforation or abscess without bleeding; K21.9 Gastro-esophageal reflux disease without esophagitis; E78.5 Hyperlipidemia, unspecified; Z87.442 Personal history of urinary calculi; Z87.891 Personal history of nicotine dependence; Z86.718 Personal history of other venous thrombosis and embolism
CPT/HCPCS: 36415; 71046; 74018; 74176; 80048; 80053; 81001; 82150; 83605; 83690; 85025; 85610; 85730; 86140; 87040; 87077; 87086; 87186; 96361; 96365; 96375; 96376; 99285

== ENCOUNTER → 2023-09-19 | Outpatient (CLI) | payer MEDICARE, BC ==
--- NOTE | 2023-09-20 19:07 | MM ---
Reason for Exam: Screening (asymptomatic). Last screening mammogram was performed 12 month(s) ago. Patient History: Menarche at age 12. First Full-Term at age 19. Postmenopausal. Risk Values: Irina 5 year model risk: 1.4%. NCI Lifetime model risk: 5.1%. Prior Study Comparison: 06/27/2020 Bilateral Screening Mammogram, [facility]. 07/16/2021 Bilateral Screening Mammogram, [facility]. 09/14/2022 Bilateral MG 3D screening mammo w/cad, [facility]. Tissue Density: There are scattered fibroglandular densities. Findings: Analyzed By CAD. Pattern appears symmetrical and stable. Benign vascular calcifications present bilaterally. No suspicious groups of microcalcifications, spiculated or lobular masses, architectural distortion or other secondary signs of malignancy are mammographically apparent. Overall Assessment: Benign, BI-RAD 2 Management: Screening Mammogram of both breasts in 1 year. A negative mammogram report should not preclude additional follow up of suspicious palpable abnormalities. Patient should continue monthly self breast exam. A clinical breast exam by your physician is recommended on an annual basis and results should be correlated with mammographic findings. Electronically signed and approved by: Heriberto Addison D.O. Radiologis
--- NOTE | 2023-09-20 19:46 | BD ---
EXAMINATION TYPE: Axial Bone Density DATE OF EXAM: 09/19/2023 CLINICAL HISTORY: 63 years old Female. ICD-10 CODE: M81.0 AGE RELATED OSTEO W FRAC Height: 61 Weight: 152.9 FRAX RISK QUESTIONS: Alcohol (3 or more units per day): no Family History (Parent hip fracture): no Glucocorticoids (More than 3mos): no History of Fracture in Adulthood: foot and hand Secondary Osteoporosis: 1. Type 1 Diabetes: no 2. Hyperthyroidism: no 3. Menopause before 45: no 4. Malnutrition: no 5. Chronic liver disease: no Rheumatoid Arthritis: no Current Tobacco Use: no RISK FACTORS HISTORY OF: Hip Fracture (Right/Left): no Spine Fracture: no History of Wrist Fracture: no Surgery to Spine/Hip(right/left)/Wrist (right/left): no Family History of Osteoporosis: no Active: no Diet low in dairy products/other sources of calcium: yes Postmenopausal woman: yes Take estrogen and/or progesterone medications: no Lost more than 2 inches in height since high school: no Frequent falls: yes Poor Health: no Hyperparathyroidism: no Adrenal Insufficiency: no MEDICATIONS: Prednisone or other steroids: no Thyroid Medications: no Osteoporosis Medications: no Additional Medications: Cholesterol Meds x2, Reflux meds, Anxiety Meds, Additional History: EXAM MEASUREMENTS: Bone mineral densitometry was performed using the [employer] System. Bone mineral density as measured about the Lumbar spine is: ----- L1-L4(G/cm2): 1.132 T Score Values are as follows: ----- L1: -0.7 ----- L2: -0.6 ----- L3: 0.0 ----- L4: -0.6 ----- L1-L4: -0.4 Z Score Values are as follows: ----- L1: 0.8 ----- L2: 0.9 ----- L3: 1.4 ----- L4: 0.9 ----- L1-L4: 1.0 Bone mineral density has: increased 1.7 % since study of: 05/11/2018 Bone mineral density about the R hip (g/cm2): 0.988 Bone mineral density about the L hip (g/cm2): `1.036 T Score values are as follows: -----R Neck: 0.9 -----L Neck: 0.3 -----R Total: -0.2 -----L Total: 0.2 Z Score values are as follows: -----R Neck: 2.3 -----L Neck: 1.7 -----R Total: 0.9 -----L Total: 1.3 Bone mineral density has: increased 8.4 % since study of: 05/11/2018 FRAX%s: The graph provided illustrates a 10.3% chance for a major osteoporotic fx and a 0.2% chance f or the hips probability for fx in 10 years time. IMPRESSION: Normal (Values between +1 and -1 indicate normal bone mass). Consider repeating this study in 5 year s or sooner if there is some new clinical indication. NOTE: T-SCORE=SD OF THE YOUNG ADULT MEAN.
== END | disposition home or self-care (01) ==
LOC: RADBDWWP 15:35
PROVIDERS: ATTEND Internal Medicine Geriatric Medicine
DX: Z12.31 Encounter for screening mammogram for malignant neoplasm of breast (principal); M81.0 Age-related osteoporosis without current pathological fracture; Z78.0 Asymptomatic menopausal state
CPT/HCPCS: 77063; 77067; 77080

== ENCOUNTER → 2024-09-13 | Outpatient (CLI) | payer MEDICARE, BC ==
[2024-09-13 16:06] LABS: ALT 20 U/L (8-44); AST 27 U/L (13-35); Albumin 4.4 g/dL (3.8-4.9); Albumin/Globulin Ratio 1.91 Ratio (1.60-3.17); Alkaline Phosphatase 49 U/L (41-126); BUN/Creat Ratio 18.67 Ratio (12.00-20.00); Blood Urea Nitrogen 16.8 mg/dL (9.0-27.0); Calcium 9.5 mg/dL (8.7-10.3); Carbon Dioxide 24.9 mmol/L (21.6-31.8); Chloride 105 mmol/L (96-109); Chol/HDL Ratio 3.38 Ratio; Globulin 2.3 g/dL (1.6-3.3); Glucose 96 mg/dL (70-110); LDL Cholesterol,Calculated 100.3 mg/dL (0.0-131.0); Potassium 4.3 mmol/L (3.5-5.5); Sodium 141 mmol/L (135-145); Total Bilirubin 0.4 mg/dL (0.3-1.2); Total Protein 6.7 g/dL (6.2-8.2)
[2024-09-13 16:15] LABS: Basophils # (A) 0.05 X 10*3/uL (0.00-0.10); Eosinophils # (A) 0.09 X 10*3/uL (0.04-0.35); Eosinophils % (A) 1.8 %; HCT 40.4 % (37.2-46.3); HGB 13.7 g/dL (12.0-15.0); Lymphocytes # (A) 2.34 X 10*3/uL (0.90-5.00); MCHC 33.9 g/dL (32.0-37.0); MCV 88.4 FL (80.0-97.0); Mean Platelet Volume 10.5 FL (9.5-12.2); Monocytes # (A) 0.38 X 10*3/uL (0.20-1.00); Monocytes % (A) 7.8 %; NRBC Per 100 WBC 0 X 10*3/uL (0.00-0.01); Neutrophils # (A) 2.01 X 10*3/uL (1.80-7.70); Neutrophils % (A) 41.2 %; Platelet Count 331 X 10*3/uL (140-440); RBC 4.57 X 10*6/uL (4.10-5.20); RDW 11.9 % (11.5-14.5); WBC 4.88 X 10*3/uL (4.50-10.00)
== END | disposition home or self-care (01) ==
LOC: LABWHC1 08:42
PROVIDERS: ATTEND Internal Medicine Geriatric Medicine
DX: Z00.00 Encounter for general adult medical examination without abnormal findings (principal); E78.2 Mixed hyperlipidemia; R73.9 Hyperglycemia, unspecified
CPT/HCPCS: 36415; 80053; 80061; 83036; 84443; 85025

== ENCOUNTER → 2024-10-11 | Outpatient (CLI) | payer MEDICARE, BC ==
--- NOTE | 2024-10-12 12:08 | MM ---
Reason for Exam: Screening (asymptomatic). Last mammogram was performed 1 year(s) and 1 month(s) ago. Patient History: Menarche at age 12. First Full-Term at age 19. Postmenopausal. Risk Values: Irina 5 year model risk: 1.4%. NCI Lifetime model risk: 4.9%. Prior Study Comparison: 07/16/2021 Bilateral Screening Mammogram, [facility]. 09/14/2022 Bilateral MG 3D screening mammo w/cad, [facility]. 09/19/2023 Bilateral MG 3D screening mammo w/cad, [facility]. Tissue Density: The breasts are heterogeneously dense, which may obscure small masses. Findings: Analyzed By CAD. There is no suspicious group of microcalcifications or new suspicious mass in either breast. Overall Assessment: Benign, BI-RAD 2 Management: Screening Mammogram of both breasts in 1 year. . Patient should continue monthly self-breast exams. A clinical breast exam by your physician is recommended on an annual basis. This exam should not preclude additional follow-up of suspicious palpable abnormalities. Note on Irina scores and lifetime risk: 1. A Irina score greater than 3% is considered moderate risk. If this is the case, consider specialist referral to assess eligibility for a risk reducing agent. 2. If overall lifetime risk for the development of breast cancer is 20% or higher, the patient may qualify for future screening with alternating mammogram and breast MRI. [facility], , 10/12/2024 12:06 PM. Electronically signed and approved by: Tres Mcrae M.D. Radiologis
== END | disposition home or self-care (01) ==
LOC: RADMAMWWP 14:22
PROVIDERS: ATTEND Internal Medicine Geriatric Medicine
DX: Z12.31 Encounter for screening mammogram for malignant neoplasm of breast (principal); Z78.0 Asymptomatic menopausal state; R92.333 Mammographic heterogeneous density, bilateral breasts
CPT/HCPCS: 77063; 77067

== ENCOUNTER → 2024-11-16 | Outpatient (CLI) | payer MEDICARE, BC ==
--- NOTE | 2024-11-16 09:32 | US ---
EXAMINATION TYPE: US kidneys/renal and bladder DATE OF EXAM: 11/16/2024 COMPARISON: CT & US CLINICAL INDICATION: Female, 64 years old with history of R10.9 UNSPECIFIED ABDOMINAL PAIN; PT states h/o renal stones, currently having left flank pain TECHNIQUE: Grayscale imaging of the bilateral kidneys and urinary bladder: FINDINGS: EXAM MEASUREMENTS: Right Kidney: 9.5 x 4.8 x 5.3 cm Left Kidney: 11.9 x 5.6 x 4.7 cm Right Kidney: No evidence of hydro, hypoechoic to anechoic lesion upper pole as visualized on prior= 1.1 x 1.0 x 1.1 cm favoring simple thin-walled cyst. Left Kidney: No evidence of hydro Bladder: wnl Bilateral Jets seen: Yes Similar findings when compared to prior US in 2013 There is no evidence for hydronephrosis at this point in time. No nephrolithiasis is seen. No worri some solid masses are identified. The urinary bladder is anechoic. IMPRESSION: No hydronephrosis or obstructing renal calculi are seen bilaterally on current study. [facility], , 11/16/2024 9:30 AM
== END | disposition home or self-care (01) ==
LOC: RADUSWWP 08:50
PROVIDERS: ATTEND Internal Medicine Geriatric Medicine
DX: R10.9 Unspecified abdominal pain (principal)
CPT/HCPCS: 76770

== ENCOUNTER 2025-01-15 12:55 | Emergency (ER) | payer MEDICARE, BC ==
[2025-01-15 13:11] VITALS: RESP 18
--- NOTE | 2025-01-15 13:57 | ED ---
General Adult HPI - General Chief complaint: Neuro Symptoms/Deficit Stated complaint: Facial Numbness,Right side numbness Time Seen by Provider: 01/15/25 13:10 Source: patient, family, RN notes reviewed, old records reviewed Mode of arrival: wheelchair Limitations: no limitations - History of Present Illness Initial comments: Patient is a 64-year-old female presents emergency department with complaints of hypertension, as well as paresthesias of the right face and right fingertips, as well as some blurry vision. Everything is resolved except for the hypertension. States she was having a headache today while at a workout class. When she left the gym she began having some blurry vision with right-sided facial and fingertip numbness at approximately 11:45 AM. States this resolved by approximately 1230. Recurred once on the way to the hospital but currently has no acute complaints. Denies any headache. Denies any head injury. Is not on any blood pressure medication. Has not had any blood thinners. Denies any chest pain or shortness of breath. Denies fevers, chills, cough. Denies any nausea or vomiting. Denies any dizziness. Presents for further evaluation at this time. - Related Data Home Medications Medication Instructions Recorded Confirmed Citalopram Hydrobromide 20 mg PO HS 07/29/20 01/15/25 [Citalopram HBr] Fenofibrate 160 mg PO HS 07/29/20 01/15/25 Omeprazole 20 mg PO HS 07/29/20 01/15/25 Simvastatin 40 mg PO HS 07/29/20 01/15/25 Oxybutynin Xl [Ditropan XL] 5 mg PO HS 01/15/25 01/15/25 Previous Rx's Medication Instructions Recorded amLODIPine [Norvasc] 5 mg PO DAILY 14 Days #14 tab 01/15/25 Allergies Allergy/AdvReac Type Severity Reaction Status Date / Time No Known Allergies Allergy Verified 01/15/25 14:49 Review of Systems ROS Statement: Those systems with pertinent positive or pertinent negative responses have been documented in the HPI. Review of Systems: CONST: Denies fever EYES: Denies blurry vision ENT: Denies nasal congestion C/V: Denies Chest pain RESP: Denies shortness of breath GI: Denies abdominal pain : Denies dysuria SKIN: Denies rash. MSK: Denies joint pain. NEURO: Denies headache ROS Other: All systems not noted in ROS Statement are negative. Past Medical History Past Medical History: GERD/Reflux, Hyperlipidemia Additional Past Medical History / Comment(s): kidney stones, dvt History of Any Multi-Drug Resistant Organisms: None Reported Past Surgical History: Back Surgery Additional Past Surgical History / Comment(s): COLONOSCOPY, bladder suspension Past Anesthesia/Blood Transfusion Reactions: No Reported Reaction Past Psychological History: Depression Smoking Status: Former smoker Past Alcohol Use History: None Reported Past Drug Use History: None Reported - Past Family History Mother Family Medical History: No Reported History General Exam - General Exam Comments Initial Comments: General: Appears anxious. HEAD: Normal with no signs of head trauma. EYES: PERRLA, EOMI, conjunctiva normal, no discharge. Pupils are 3 mm and equal bilaterally. ENT: Hearing grossly intact, normal oropharynx. RESPIRATORY: Clear breath sounds bilaterally. No wheezes, rales, or rhonchi. C/V: Regular rate and rhythm. S1 and S2 auscultated, no edema, peripheral pulses 2+ and intact throughout ABD: Abd is soft, nontender, nondistended EXT: Normal range of motion, no obvious deformity SKIN: No rashes or lesions observed on exposed skin. NEURO: Alert and oriented x 4. Cranial nerves II-XII intact. No focal sensory or strength deficits. GCS of 15. NIH of 0. Limitations: no limitations Course Vital Signs 01/15/25 01/15/25 01/15/25 12:59 14:02 15:09 Temperature 98.3 F Pulse Rate 119 H 90 89 Respiratory 18 18 18 Rate Blood Pressure 211/108 180/88 149/69 O2 Sat by Pulse 96 95 94 L Oximetry 01/15/25 16:26 Temperature 97.6 F Pulse Rate 87 Respiratory 18 Rate Blood Pressure 148/75 O2 Sat by Pulse 95 Oximetry Medical Decision Making - Medical Decision Making Was pt. sent in by a medical professional or institution (, PA, TRACK REPAIR WORKER, urgent care, hospital, or fpc...) When possible be specific @ -No Did you speak to anyone other than the patient for history (EMS, parent, family, police, friend...)? What history was obtained from this source @ -No Did you review nursing and triage notes (agree or disagree)? Why? @ -I reviewed and agree with nursing and triage notes Were old charts reviewed (outside hosp., previous admission, EMS record, old EKG, old radiological studies, urgent care reports/EKG's, fpc records)? Report findings @ -No old charts were reviewed Differential Diagnosis (chest pain, altered mental status, abdominal pain women, abdominal pain men, vaginal bleeding, weakness, fever, dyspnea, syncope, headache, dizziness, GI bleed, back pain, seizure, CVA, palpatations, mental health, musculoskeletal)? @ -CVA, anxiety, hypertension, hypertensive emergency. This list is not all inclusive. EKG interpreted by me (3pts min.). @ -As above X-rays interpreted by me (1pt min.). @ -None done CT interpreted by me (1pt min.). @ -Chest x-ray reveals no obvious acute cardiopulmonary process. U/S interpreted by me (1pt. min.). @ -CT brain shows no obvious acute intracranial process. CT angiogram head and neck reveals no obvious acute large vessel occlusion or acute process. What testing was considered but not performed or refused? (CT, X-rays, U/S, labs)? Why? @ -None What meds were considered but not given or refused? Why? @ -None Did you discuss the management of the patient with other professionals (professionals i.e. , PA, TRACK REPAIR WORKER, lab, RT, psych nurse, sexual assault social worker, manager printing, teacher, commissioned fire officer, case packer)? Give summary @ -No Was smoking cessation discussed for >3mins.? @ -No Was critical care preformed (if so, how long)? @ -No Were there social determinants of health that impacted care today? How? (Homelessness, low income, unemployed, alcoholism, drug addiction, transportation, low edu. Level, literacy, decrease access to med. care, half-way, rehab)? @ -No Was there de-escalation of care discussed even if they declined (Discuss DNR or withdrawal of care, Hospice)? DNR status @ -No What co-morbidities impacted this encounter? (DM, HTN, Smoking, COPD, CAD, Cancer, CVA, ARF, Chemo, Hep., AIDS, mental health diagnosis, sleep apnea, morbid obesity)? @ -None Was patient admitted / discharged? Hospital course, mention meds given and route, prescriptions, significant lab abnormalities, going to OR and other pertinent info. @ -Patient presents with hypertension, as well as strokelike symptoms outside of the hospital. Currently has no symptoms. Patient was hypertensive in triage with systolics over 200 which is why I was notified. I evaluated patient in triage and patient had an NIH of 0. Discussed with the patient and we will move her to a room and obtain general workup. This will include CT brain and CT angiogram head and neck. She was in agreement this plan. Vital signs within acceptable limits other than hypertension. Does appear mildly anxious which cou ld be contributory as well. No history of hypertension. EKG shows no signs of acute ischemia. Imaging including CT brain and CT angiogram head and neck negative for any obvious acute process. Laboratory studies all returned within acceptable limits. On reevaluation, without any intervention, patient's blood pressure did improve with systolics ranging between 148 and 165. I discussed results with the patient. She remains asymptomatic with an NIH of 0. I did offer admission for monitoring and neuro evaluation but she would like to go home. I believe this is reasonable as she has had no symptoms here, continues to have an NIH of 0, and blood pressures improved without intervention. However I will place the patient on Norvasc and give her a dose prior to discharge. Recommended follow- up with PCP for hypertension which is likely new diagnosis. She was in agreement this plan. I will provide the patient with a prescription for Norvasc. I instructed the patient to follow up with their PCP in the next 1-3 days.. I explained that the patient should return to the emergency department if they experience any worsening symptoms. Strict return precautions were discussed with the patient. The patient expressed understanding of these instructions. I answered all questions that the patient had. The patient was discharged home in good condition with their prescriptions and follow up information. Undiagnosed new problem with uncertain prognosis? @ -No Drug Therapy requiring intensive monitoring for toxicity (Heparin, Nitro, Insulin, Cardizem)? @ -No Were any procedures done? @ -No Diagnosis/symptom? @ -Hypertension, paresthesias Acute, or Chronic, or Acute on Chronic? @ -Acute Uncomplicated (without systemic symptoms) or Complicated (systemic symptoms)? @ -Uncomplicated Side effects of treatment? @ -No Exacerbation, Progression, or Severe Exacerbation? @ -No Poses a threat to life or bodily function? How? (Chest pain, [place], [place], pneumonia, PE, COPD, DKA, ARF, appy, cholecystitis, CVA, Diverticulitis, Homicidal, Suicidal, threat to staff... and all critical care pts) @ -Unlikely at this time - Lab Data Result diagrams: 01/15/25 13:53 01/15/25 13:53 Lab Results 01/15/25 01/15/25 01/15/25 Range/Units 13:53 13:53 13:53 WBC 8.2 (3.8-10.6) k/uL RBC 4.89 (3.80-5.40) m/uL Hgb 14.1 (11.4-16.0) gm/dL Hct 41.5 (34.0-46.0) % MCV 84.9 (80.0-100.0) fL MCH 28.7 (25.0-35.0) pg MCHC 33.9 (31.0-37.0) g/dL RDW 12.3 (11.5-15.5) % Plt Count 333 (150-450) k/uL MPV 7.3 Neutrophils % 60 % Lymphocytes % 32 % Monocytes % 4 % Eosinophils % 1 % Basophils % 1 % Neutrophils # 4.9 (1.3-7.7) k/uL Lymphocytes # 2.6 (1.0-4.8) k/uL Monocytes # 0.3 (0-1.0) k/uL Eosinophils # 0.1 (0-0.7) k/uL Basophils # 0.1 (0-0.2) k/uL PT 10.7 (10.0-12.5) sec INR 1.0 (<1.2) APTT 22.9 (22.0-30.0) sec Sodium 137 (137-145) mmol/L Potassium 4.1 (3.5-5.1) mmol/L Chloride 103 (98-107) mmol/L Carbon Dioxide 22 (22-30) mmol/L Anion Gap 12 mmol/L BUN 18 H (7-17) mg/dL Creatinine 0.84 (0.52-1.04) mg/dL Est GFR (CKD-EPI)AfAm 84 (>60 ml/min/1.73 sqM) Est GFR (CKD-EPI)NonAf 73 (>60 ml/min/1.73 sqM) Glucose 145 H (74-99) mg/dL Plasma Lactic Acid Malcolm (0.7-2.0) mmol/L Calcium 10.0 (8.4-10.2) mg/dL Magnesium 1.8 (1.6-2.3) mg/dL Total Bilirubin 0.6 (0.2-1.3) mg/dL AST 27 (14-36) U/L ALT 20 (4-34) U/L Alkaline Phosphatase 53 (38-126) U/L Total Protein 7.3 (6.3-8.2) g/dL Albumin 4.7 (3.5-5.0) g/dL Serum Alcohol <10 mg/dL Influenza Type A (PCR) (Not Detectd) Influenza Type B (PCR) (Not Detectd) RSV (PCR) (Not Detectd) SARS-CoV-2 (PCR) (Not Detectd) 01/15/25 01/15/25 Range/Units 13:53 13:53 WBC (3.8-10.6) k/uL RBC (3.80-5.40) m/uL Hgb (11.4-16.0) gm/dL Hct (34.0-46.0) % MCV (80.0-100.0) fL MCH (25.0-35.0) pg MCHC (31.0-37.0) g/dL RDW (11.5-15.5) % Plt Count (150-450) k/uL MPV Neutrophils % % Lymphocytes % % Monocytes % % Eosinophils % % Basophils % % Neutrophils # (1.3-7.7) k/uL Lymphocytes # (1.0-4.8) k/uL Monocytes # (0-1.0) k/uL Eosinophils # (0-0.7) k/uL Basophils # (0-0.2) k/uL PT (10.0-12.5) sec INR (<1.2) APTT (22.0-30.0) sec Sodium (137-145) mmol/L Potassium (3.5-5.1) mmol/L Chloride (98-107) mmol/L Carbon Dioxide (22-30) mmol/L Anion Gap mmol/L BUN (7-17) mg/dL Creatinine (0.52-1.04) mg/dL Est GFR (CKD-EPI)AfAm (>60 ml/min/1.73 sqM) Est GFR (CKD-EPI)NonAf (>60 ml/min/1.73 sqM) Glucose (74-99) mg/dL Plasma Lactic Acid Malcolm 1.5 (0.7-2.0) mmol/L Calcium (8.4-10.2) mg/dL Magnesium (1.6-2.3) mg/dL Total Bilirubin (0.2-1.3) mg/dL AST (14-36) U/L ALT (4-34) U/L Alkaline Phosphatase (38-126) U/L Total Protein (6.3-8.2) g/dL Albumin (3.5-5.0) g/dL Serum Alcohol mg/dL Influenza Type A (PCR) Not Detected (Not Detectd) Influenza Type B (PCR) Not Detected (Not Detectd) RSV (PCR) Not Detected (Not Detectd) SARS-CoV-2 (PCR) Not Detected (Not Detectd) - EKG Data -: EKG Interpreted by Me EKG Comments: 12-lead Electrocardiogram Interpretation Note EKG was reviewed and interpreted by myself. 12-lead ECG performed at 1405 is interpreted by me as revealing normal sinus rhythm at a rate of 89 beats per minute. [place] is normal. [place] interval is 156 ms, QRS duration is 97 ms, QTc is 409 ms. There were no ST or T wave abnormalities to suggest myocardial ischemia or injury. R wave progression across the precordium was satisfactory. By my interpretation this EKG is non-diagnostic for acute ischemia. Disposition Clinical Impression: Hypertension, Facial paresthesia, Paresthesia of finger Disposition: HOME SELF-CARE Condition: Good Instructions (If sedation given, give patient instructions): Hypertension (ED) Additional Instructions: Diagnosis today is paresthesias as well as hypertension. Please take Norvasc daily. Monitor blood pressure on a daily basis with blood pressure cuff at home. Follow-up with your PCP in the next 1 to 3 days.Do not take your Norvasc if your blood pressure is below 130-140 for the top number. Prescriptions: amLODIPine [Norvasc] 5 mg PO DAILY 14 Days #14 tab Is patient prescribed a controlled substance at d/c from ED?: No Referrals: Edgar Negron MD [Primary Care Provider] - 1-2 days Time of Disposition: 15:56
[2025-01-15 14:14] LABS: Basophils # (A) 0.1 k/uL (0-0.2); Basophils % (A) 1 %; Eosinophils # (A) 0.1 k/uL (0-0.7); Eosinophils % (A) 1 %; HCT 41.5 % (34.0-46.0); HGB 14.1 gm/dL (11.4-16.0); Lymphocytes # (A) 2.6 k/uL (1.0-4.8); Lymphocytes % (A) 32 %; MCH 28.7 pg (25.0-35.0); MCHC 33.9 g/dL (31.0-37.0); MCV 84.9 fL (80.0-100.0); Mean Platelet Volume 7.3; Monocytes # (A) 0.3 k/uL (0-1.0); Monocytes % (A) 4 %; Neutrophils # (A) 4.9 k/uL (1.3-7.7); Neutrophils % (A) 60 %; Platelet Count 333 k/uL (150-450); RBC 4.89 m/uL (3.80-5.40); RDW 12.3 % (11.5-15.5); WBC 8.2 k/uL (3.8-10.6)
[2025-01-15 14:26] LABS: ALT 20 U/L (4-34); AST 27 U/L (14-36); African American GFR (CKD) 84 (>60 ml/min/1.73 sqM); Albumin 4.7 g/dL (3.5-5.0); Alcohol <10 mg/dL; Alkaline Phosphatase 53 U/L (38-126); Anion Gap 12 mmol/L; Blood Urea Nitrogen 18 mg/dL (7-17); Carbon Dioxide 22 mmol/L (22-30); Chloride 103 mmol/L (98-107); Glucose 145 mg/dL (74-99); Magnesium 1.8 mg/dL (1.6-2.3); Non-African American GFR(CKD) 73 (>60 ml/min/1.73 sqM); Partial Thromboplastin Time 22.9 sec (22.0-30.0); Potassium 4.1 mmol/L (3.5-5.1); Prothrombin Time 10.7 sec (10.0-12.5); Sodium 137 mmol/L (137-145); Total Bilirubin 0.6 mg/dL (0.2-1.3); Total Protein 7.3 g/dL (6.3-8.2)
[2025-01-15 14:50] LABS: Influenza A Not Detected (Not Detectd); Influenza B Not Detected (Not Detectd); RSV Not Detected (Not Detectd)
--- NOTE | 2025-01-15 14:52 | CT ---
EXAMINATION TYPE: CT brain wo con DATE OF EXAM: 01/15/2025 COMPARISON: 05/20/2015 CLINICAL INDICATION: Female, 64 years old with history of headache; PHH, Headache, neuro deficits praveen vated BP CT DLP: 1160.6 mGycm Automated exposure control for dose reduction was used. Findings: The ventricles, basal cisterns and sulci over the convexities are within normal limits and there is n o mass effect or shift of midline structures. No abnormal density is seen throughout the brain parenchyma and there is no acute intra or extra-axia l hemorrhage. The posterior fossa including the brainstem, fourth ventricle and cerebellar pontine angles appear no rmal. Intraorbital contents appear normal and symmetric. Visualized paranasal sinuses and mastoid air cells are well aerated. The calvarium is intact. IMPRESSION: No significant abnormality seen. There is no acute bleed or mass effect. [facility], , 01/15/2025 2:50 PM
--- NOTE | 2025-01-15 14:58 | CT ---
EXAMINATION TYPE: CT angio head neck DATE OF EXAM: 01/15/2025 COMPARISON: None CLINICAL INDICATION: Female, 64 years old with history of headache, numbness; PHH, Pt c/o right facia l numbness, right hand numbness TECHNIQUE: CTA scan of the head and neck is performed with IV Contrast, patient injected with 65 ml mL of Isovue 370, axial images are obtained, coronal and sagittal reformatted images are reviewed. 3D reconstructed images are created on an independent workstation and reviewed. CT DLP: 555.[address] CTDI: mGy Automated exposure control for dose reduction was used. NASCET criteria was used in interpretation of this exam? FINDINGS: The brachiocephalic origins are widely patent and no significant stenosis. There is moderate calcified plaque of the carotid bifurcations and proximal internal carotid arteries bilaterally but there is no significant stenosis. Intracranially, there is no stenosis, segmental occlusion, sizable aneurysm sac or vascular malformat ion. IMPRESSION:. No significant abnormality seen. NASCET criteria was used in interpretation of this exam? [facility], Workstation: [id number] 01/15/2025 2:55 PM
--- NOTE | 2025-01-15 15:35 | XR ---
EXAMINATION TYPE: XR chest 1V portable DATE OF EXAM: 01/15/2025 3:21 PM COMPARISON: Chest radiographs from 11/25/2022 TECHNIQUE: XR chest 1V portable Portable AP radiograph of the chest. CLINICAL INDICATION:Female, 64 years old with history of headache; FINDINGS: Lungs/Pleura: There is no evidence of pleural effusion, focal consolidation, or pneumothorax. Pulmonary vascularity: Unremarkable. Heart/mediastinum: Cardiomediastinal silhouette is unremarkable. Atherosclerotic calcifications are seen in the aorta. Musculoskeletal: No acute osseous pathology. IMPRESSION: No acute cardiopulmonary disease/process. [facility], , 01/15/2025 3:33 PM
[2025-01-15] MEDS: amLODIPine 5 MG TAB PO STA (16:24)
[2025-01-15 16:28] VITALS: BP 148/75; PULSE 87; TEMP 97.6
== END 2025-01-15 16:34 | disposition home or self-care (01) ==
LOC: EC 12:55
DX: I10 Essential (primary) hypertension (principal); R20.2 Paresthesia of skin; Z87.891 Personal history of nicotine dependence; Z11.52 Encounter for screening for COVID-19
CPT/HCPCS: 93005; 80053; 83605; 83735; 85025; 85610; 85730; 87636; 71045; 70496; 70450; 70498; 99285; G0480; Q9967; 36415; 80320

== ENCOUNTER → 2025-03-14 | Outpatient (CLI) | payer MEDICARE, BC ==
--- NOTE | 2025-03-14 18:40 | CA ---
Transthoracic Echo Report Name: Alondra Hagen Age: 64 Gender: F : 1960 Exam Date: 03/14/2025 12:56 Exam Location: [facility] Ht (in): 61 Wt (lb): 150 Ordering Physician: Edgar Negron MD Attending/Referring Phys: Edgar Negron MD Breakfast Cook Karen Garcia, [facility] [place] Procedure CPT: Indications: I34.0 NONRHEUMATIC MITRAL (VALVE) INSUFFICIENCY Cardiac Hx: Technical Quality: Good Contrast 1: Total Dose (mL): Contrast 2: Total Dose (mL): MEASUREMENTS (Male / Female) Normal Values 2D ECHO LV Diastolic Diameter PLAX 4.3 cm 4.2 - 5.9 / 3.9 - 5.3 cm LV Systolic Diameter PLAX 2.9 cm IVS Diastolic Thickness 1.0 cm 0.6 - 1.0 / 0.6 - 0.9 cm LVPW Diastolic Thickness 1.1 cm 0.6 - 1.0 / 0.6 - 0.9 cm LV Relative Wall Thickness 0.5 RV Internal Dim ED PLAX 2.6 cm LA Systolic Diameter LX 3.2 cm 3.0 - 4.0 / 2.7 - 3.8 cm LV Diastolic Volume MOD BP 65.3 cm??? 67 - 155 / 56 - 104 cm??? LV Systolic Volume MOD BP 21.0 cm??? 22 - 58 / 19 - 49 cm??? LV Ejection Fraction MOD BP 67.9 % >= 55 % LV Cardiac Index MOD BP 2301.8 cm???/min???m??? LV Diastolic Volume MOD 4C 60.8 cm??? LV Systolic Volume MOD 4C 17.8 cm??? LV Ejection Fraction MOD 4C 70.8 % LV Cardiac Index MOD 4C 2237.1 cm???/min???m??? LV Diastolic Length 4C 7.6 cm LV Systolic Length 4C 5.8 cm LV Diastolic Volume MOD 2C 66.7 cm??? LV Systolic Volume MOD 2C 24.2 cm??? LV Ejection Fraction MOD 2C 63.7 % LV Cardiac Index MOD 2C 2205.8 cm???/min???m??? LV Diastolic Length 2C 7.2 cm LV Systolic Length 2C 6.0 cm M-MODE Aortic Root Diameter MM 2.9 cm LA Systolic Diameter MM 2.5 cm LA Ao Ratio MM 0.9 AV Cusp Separation MM 1.6 cm DOPPLER AV Peak Velocity 180.6 cm/s AV Peak Gradient 13.1 mmHg Mitral E Point Velocity 65.9 cm/s Mitral A Point Velocity 91.8 cm/s Mitral E to A Ratio 0.7 MV Deceleration Time 279.6 ms MV E' Velocity 8.2 cm/s Mitral E to MV E' Ratio 8.1 TR Peak Velocity 248.3 cm/s TR Peak Gradient 24.7 mmHg FINDINGS Left Ventricle Left ventricular ejection fraction is estimated at 55-60 %. Mildly increased septal wall thickness. Mildly increased posterior wall thickness. Normal left ventricular systolic function with no obvious regional wall motion abnormalities. Left ventricular cavity size normal. Right Ventricle Mild right ventricular dilatation. Right ventricular systolic pressure within normal limits. Right Atrium Mild right atrial dilatation. Left Atrium Mild left atrial dilatation. Mitral Valve Structurally normal mitral valve. Trace to mild mitral regurgitation. No mitral stenosis. Aortic Valve Trileaflet aortic valve. No aortic valve stenosis or regurgitation. Tricuspid Valve Structurally normal tricuspid valve. Mild tricuspid regurgitation. No tricuspid stenosis. Pulmonic Valve Structurally normal pulmonic valve. Mild pulmonic regurgitation. No pulmonic stenosis. Pericardium No pericardial or pleural effusion. Aorta Normal size aortic root and proximal ascending aorta. CONCLUSIONS Reason for echo: Mitral valve disease Normal LV size and function Prominent posterior pericardial stripe Mild biatrial enlargement Mild tricuspid regurgitation mild mitral regurgitation Previewed by: Dr. Wes Townsend MD (Electronically Signed) Final Date: 14 Mar 2025 18:39
== END | disposition home or self-care (01) ==
LOC: RADECHMAIN 12:47
PROVIDERS: ATTEND Internal Medicine Geriatric Medicine
DX: I08.1 Rheumatic disorders of both mitral and tricuspid valves (principal)
CPT/HCPCS: 93306

== ENCOUNTER → 2025-05-03 | Outpatient (CLI) | payer MEDICARE, BC ==
[2025-05-03 15:30] LABS: Basophils # (A) 0.07 X 10*3/uL (0.00-0.10); Basophils % (A) 1.4 %; Eosinophils # (A) 0.10 X 10*3/uL (0.04-0.35); Eosinophils % (A) 1.9 %; HCT 38.9 % (37.2-46.3); HGB 13.0 g/dL (12.0-15.0); Immature Grans, Automated 0.20 %; Lymphocytes # (A) 2.14 X 10*3/uL (0.90-5.00); Lymphocytes % (A) 41.7 %; MCH 29.1 pg (27.0-32.0); MCHC 33.4 g/dL (32.0-37.0); MCV 87.0 FL (80.0-97.0); Monocytes # (A) 0.38 X 10*3/uL (0.20-1.00); Monocytes % (A) 7.4 %; NRBC Per 100 WBC 0 X 10*3/uL (0.00-0.01); Neutrophils # (A) 2.43 X 10*3/uL (1.80-7.70); Neutrophils % (A) 47.4 %; Platelet Count 347 X 10*3/uL (140-440); RBC 4.47 X 10*6/uL (4.10-5.20); RDW 12.1 % (11.5-14.5); WBC 5.13 X 10*3/uL (4.50-10.00)
[2025-05-03 15:34] LABS: Cholesterol 193.00 mg/dL (0.00-200.00); HDL Cholesterol 58.90 mg/dL (40.00-60.00); Triglycerides 144.00 mg/dL (0.00-149.00); VLDL Calculation 28.80 mg/dL (5.00-40.00)
[2025-05-03 15:35] LABS: ALT 18 U/L (8-44); AST 25 U/L (13-35); Albumin 4.7 g/dL (3.8-4.9); Albumin/Globulin Ratio 1.81 Ratio (1.60-3.17); Alkaline Phosphatase 53 U/L (41-126); Anion Gap 11.60 mmol/L (4.00-12.00); BUN/Creat Ratio 17.67 Ratio (12.00-20.00); Blood Urea Nitrogen 15.9 mg/dL (9.0-27.0); Calcium 9.9 mg/dL (8.7-10.3); Carbon Dioxide 26.4 mmol/L (21.6-31.8); Chloride 104 mmol/L (96-109); Globulin 2.6 g/dL (1.6-3.3); Glucose 94 mg/dL (70-110); LDL Cholesterol,Calculated 105.3 mg/dL (0.0-131.0); Potassium 5.2 mmol/L (3.5-5.5); Sodium 142 mmol/L (135-145); Total Protein 7.3 g/dL (6.2-8.2)
== END | disposition home or self-care (01) ==
LOC: LABWHC1 10:00
PROVIDERS: ATTEND Internal Medicine Geriatric Medicine
DX: E78.2 Mixed hyperlipidemia (principal); R73.9 Hyperglycemia, unspecified; Z86.73 Personal history of transient ischemic attack (TIA), and cerebral infarction without residual deficits
CPT/HCPCS: 36415; 80053; 80061; 83036; 85025